=== PATIENT | female | born 1985 | race Caucasian/White ===

== ENCOUNTER → 2016-03-05 | Outpatient (CLI) | payer MEDICAID, MEDICARE ==
[~2016-03-05] MED LIST: ALBU8.5H2 INH; ASPI-587 PO; CHOL200041 PO; CIPR500T78 PO; CYAN50TA PO; FAMO-119 PO; FLUO10CA19 PO; HYDR-3454 PO; HYOS0.1283 SL; MECL-105 PO; MECL25TA56 PO; MELO-195 PO; METF500T8 PO; METR500T PO; MTF500T PO; MULT-974 PO; NITR-65 PO; OMEP40CA36 PO; ONDA8TAB13 PO; ONDAN4ODT PO; PANT40TA2 PO; PARO10TA2; PARO10TA21; PARO10TA3; PHEN-452 PO; PHEN37.53 PO; PNT40TEC PO; POTA10CA43 PO; PROM25TA14 PO; PRX20T PO; SCOP1PAT TD; SUCR1ORA5 PO; SULF1TAB35 PO; SUMA25TA4 PO; TOPI25TA10; TRAM-21 PO; TRAM50TA2 PO; [UNRECOGNIZED DRUG - OTHER]
--- OUTSIDE RECORDS SUMMARY | 2016-03-05 08:11 | XMS REPORT | Continuity of Care Document ---
Author Author [facility] Organization [facility] Address Unknown Phone Unavailable Care Team Providers Care Security Patrol Driver Name Role Phone KAMRYN MORE DO PCP Insurance Providers Payer Name Policy Number Subscriber Name Relationship [employer] [id number] Yaw Bunch 16 Self / Same As Patient [employer] [id number] Yaw Bunch Self / Same As Patient Advance Directives Directive Response Recorded Date/Time Advance Directives No 07/28/14 11:12pm Health Care Power of Programming Specialist No 07/28/14 11:12pm Organ Donor No 07/28/14 11:12pm Resuscitation Status Full Code 07/28/14 11:12pm Problems Medical Problems Problem Onset Date Status Colitis Unknown Active UTI (urinary tract infection) Unknown Active Cellulitis Unknown Active Infected sebaceous cyst Unknown Active Medications Medication Dose Route Sig Days/Qty Instructions Order Date Discontinued Date Status Paroxetine Hcl 04/27/09 06/15/13 Discontinued Ondansetron HCl 4 Mg PO EVERY 4HRS 5 Qty FOR NAUSEA AND VOMITING 06/15/13 Discontinued Scopolamine HCl 1 Ea TD Q3D 3 Qty 04/27/09 06/15/13 Discontinued Meclizine HCl 1 Each PO QID PRN 20 Qty FOR DIZZINESS 04/27/09 06/15/13 Discontinued Phentermine Hcl 30 Mg PO DAILY 04/30/12 09/13/13 Discontinued Metformin HCl (Glucophage) 1 Each PO TWICE A DAY WITH MEALS 04/30/12 09/13/13 Discontinued Paroxetine HCl 20 Mg PO DAILY 04/30/12 09/19/13 Discontinued Meclizine Hcl 25 Mg PO EVERY 6 HOURS 20 Qty 04/30/12 06/15/13 Discontinued Tramadol Hcl 50 Mg PO TWICE A DAY PRN PAIN 06/15/13 09/13/13 Discontinued Meloxicam (Mobic) 15 Mg PO DAILY 06/15/13 06/22/13 Discontinued [depo-preva] 06/15/13 07/28/14 Discontinued Cholecalciferol (Vitamin D3) 2,000 Unit PO DAILY 06/15/13 07/28/14 Discontinued Multivitamin 1 Each PO DAILY 06/15/13 07/28/14 Discontinued Aspirin 81 Mg PO DAILY 06/15/13 06/22/13 Discontinued Ciprofloxacin HCl 500 Mg PO TWICE A DAY 20 Qty 08/27/13 09/13/13 Discontinued Metronidazole 1 Each PO THREE TIMES A DAY 30 Qty 08/27/13 09/17/13 Discontinued Pantoprazole Sodium 1 Tab PO DAILY 30 Qty 08/27/13 09/17/13 Discontinued Fluoxetine HCl (Prozac) 10 Mg PO DAILY 30 Qty 09/13/13 Active Albuterol 1 Puff INH NEEDED PRN AIR HUNGER 9 Qty 09/13/13 07/28/14 Discontinued Metformin HCl (Glucophage Xr) 500 Mg PO DAILY 30 Qty 09/13/13 Active Potassium Chloride 10 Meq PO DAILY 30 Qty 09/13/13 Active Meloxicam (Mobic) 15 Mg PO DAILY 30 Qty 09/13/13 Active Cyanocobalamin 50 Mcg PO DAILY 09/13/13 07/28/14 Discontinued Hydrocodone Bit/Acetaminophen 1-2 Tab PO EVERY 4-6HRS PRN PAIN 30 Qty 09/19/13 07/28/14 Discontinued Paroxetine Hcl 30 Qty 07/28/14 Active Trimethoprim/Sulfamethoxazole 1 Tab PO TWICE A DAY 20 Qty FOR INFECTION 07/28/14 Active Tramadol Hcl 50 Mg PO EVERY 4HRS 20 Qty 07/28/14 Active Social History Social History Problem Response Recorded Date/Time Alcohol Use Denies Use 07/28/2014 11:12pm Recreational Drug Use No 07/28/2014 11:12pm Recent Foreign Travel No 07/28/2014 11:12pm Recent Infectious Disease Exposure No 07/28/2014 11:12pm Hospitalization with Isolation Denies 07/28/2014 11:12pm Sexually Transmitted Disease No 07/28/2014 11:12pm Smoking Status Never a Smoker 07/28/2014 11:12pm Query Response Start Date Stop Date Smoking Status Never a Smoker Hospital Discharge Instructions No hospital discharge instructions. Plan of Care No plan of care. Functional Status No functional status results. Allergies, Adverse Reactions, Alerts Allergen Type Severity Reaction Status Last Updated No Known Drug Allergies Active 04/30/12 Immunizations No immunization records. Vital Signs Acute Vital Signs Vital Response Date/Time Temperature (Fahrenheit) 99.4 degrees F (97.6 - 99.5) Temperature (Calculated Celsius) 37.73017 degrees C (36.4 - 37.5) Pulse Rate (adult) 80 bpm (60 - 90) Respiratory Rate 18 bpm (12 - 24) O2 Sat by Pulse Oximetry 96 % (88 - 100) Blood Pressure 125/69 mm Hg Pain Pain Intensity 10 Height (Feet) 5 feet Height (Inches) 9 inches Height (Calculated Centimeters) 175.143970 cm Weight (Pounds) 215 pounds Weight (Calculated Kilograms) 97.466205 kilograms Calculated BMI 31.75 Results No known relevant diagnostic tests, laboratory data and/or discharge summary. Procedures No known history of procedures. Encounters Encounter Location Date/Time Departed Emergency Room [facility] 07/28/14 10:15pm Recent Diagnosis
--- NOTE | 2016-03-05 09:03 | Diagnostic Imaging Report ---
PROCEDURE: MR imaging of the brain without contrast. TECHNIQUE: Multiplanar, multisequence MR imaging of the brain was performed without contrast. INDICATION: Migraine headaches. FINDINGS: There is no mass, shift of the midline or hemorrhage to suggest an acute intracranial abnormality. Furthermore, there is no abnormal signal arising from the brain on the diffusion series to suggest an area of acute ischemia. The ventricles are not abnormally dilated and similar in size to the previous MRI brain exam of 12/26/2006. In the interval since the previous study however, a fairly well-circumscribed 6.4 mm area of increased signal has developed adjacent to the left frontal horn on the FLAIR series. This finding is nonspecific and may be secondary to encephalomalacia from microvascular ischemia. It would be unlikely that this is related to demyelinating disease. There is no other abnormal signal in the periventricular white matter on the FLAIR series. The sella is not enlarged and the expected carotid flow voids are evident bilaterally. There are two contiguous retention cysts in the floor of the left maxillary antrum. These have a conglomerate size of 1.0 x 2.2 cm. There may also be minimal mucosal thickening of each maxillary antrum and of the ethmoid sinuses. The sphenoid and frontal sinuses are generally clear. The orbits are symmetrical and within normal limits. The seventh and eighth nerve complexes are unremarkable. The cerebellar tonsils are low-lying but within normal limits. The tonsils seem similar in position to the prior exam. IMPRESSION: 1. There is no evidence for an acute intracranial abnormality. There is no sign of a mass lesion either. 2. The small area of increased signal in the periventricular white matter near the left frontal horn seen on FLAIR series is nonspecific. This may be secondary to a small focus of encephalomalacia perhaps related to microvascular ischemia. It would be unlikely that this is related to demyelinating disease. 3. The cerebellar tonsils are low-lying but within normal limits and stable when compared to the prior study. Dictated by: Dictated on workstation # [id number]
== END ==
LOC: RAD 08:07
PROVIDERS: ATTEND Internal Medicine
DX: R51 Headache (principal)
CPT/HCPCS: 70551

== ENCOUNTER 2016-05-04 17:01 | Emergency (ER) | payer MEDICAID ==
[~2016-05-04] VITALS: Ht 170.2 cm; Wt 86.2 kg
[~2016-05-04 17:01] MED LIST changes: -FAMO-119 PO
[2016-05-04] MEDS ORDERED: NS IV 1000 ML 1,000 ML IV ONE (17:53)
[2016-05-04] MEDS ORDERED: FAMOTIDINE 20MG/2ML IV (PEPCID) IV STA (17:53)
[2016-05-04] MEDS ORDERED: LIDOCAINE 2% VISCOUS 15 ML UDC PO ONE (18:00)
[2016-05-04] MEDS ORDERED: ANTACID SUSP 30 ML UDC (MYLANTA) PO ONE (18:00)
[2016-05-04 18:13] LABS: BILIRUBIN,URINE NEGATIVE (NEGATIVE); KETONES,URINE NEGATIVE (NEGATIVE); LEUKOCYTE ESTERASE ,URINE 1+ (NEGATIVE); NITRITE,URINE NEGATIVE (NEGATIVE); PH,URINE 5 (5-9); PROTEIN,URINE 1+ (NEGATIVE); UROBILINOGEN,URINE NORMAL (NORMAL)
[2016-05-04 18:56] LABS: BASOPHILS % (AUTO) 0 % (0-10); EOSINOPHILS # (AUTO) 0.1 10^3/uL (0.0-0.3); EOSINOPHILS % (AUTO) 1 % (0-10); LYMPHOCYTES # (AUTO) 3.5 X 10^3 (1.0-4.0); LYMPHOCYTES % (AUTO) 39 % (12-44); MEAN CORPUSCULAR HEMOGLOBIN 31 PG (25-34); MEAN CORPUSCULAR HGB CONC 35 G/DL (32-36); MEAN CORPUSCULAR VOLUME 89 FL (80-99); MEAN PLATELET VOLUME 10.6 FL (7.4-10.4); MONOCYTES # (AUTO) 0.7 X 10^3 (0.0-1.0); MONOCYTES % (AUTO) 8 % (0-12); NEUTROPHILS # (AUTO) 4.8 X 10^3 (1.8-7.8); NEUTROPHILS % (AUTO) 53 % (42-75); PLATELET COUNT 250 10^3/uL (130-400); RED BLOOD COUNT 4.51 10^6/uL (4.35-5.85); RED CELL DISTRIBUTION WIDTH 12.3 % (10.0-14.5); WHITE BLOOD COUNT 9.1 10^3/uL (4.3-11.0)
--- NOTE | 2016-05-04 19:00 | ED Abdominal Pain ---
General Chief Complaint: Abdominal/GI Problems Stated Complaint: STOMACH PAIN Nursing Triage Note: c/o abd pain. Denies vomiting or diarrhea Sepsis Screen: No Definite Risk Source of Information: Patient Exam Limitations: No Limitations History of Present Illness Time Seen By Provider: 18:59 Initial Comments 31-year-old female patient presents to the emergency department with complaints of epigastric pain. Does complain of nausea and heartburn. Denies vomiting or diarrhea. Patient reports history of a hiatal hernia. Timing/Duration: 1 Week Severity/Quality: Aching, Burning Location: Epigastric Radiation: No Radiation Activities at Onset: None Modifying Factors: Worsens With Eating, Worsens With Lying down Allergies and Home Medications Allergies Coded Allergies: No Known Drug Allergies (Unverified , 04/30/12) Home Medications Famotidine 20 Mg Tablet, 20 MG PO BID, #20 Ref 0 Prescribed by: HOME BEATTY on 05/04/162026 Fluoxetine Hcl 10 Mg Capsule, 10 MG PO DAILY, #30 (Reported) Hyoscyamine Sulfate 0.125 Mg Tab.subl, 1-2 TAB SL Q4H, #10 Prescribed by: IBETH ZIMMERMAN on 12/06/152008 Meloxicam 15 Mg Tablet, 15 MG PO DAILY, #30 (Reported) Metformin Hcl 500 Mg Tab.sr.24h, 500 MG PO DAILY, #30 (Reported) Nitrofurantoin Monohyd/M-Cryst 100 Mg Capsule, 100 MG PO BID, #20 Prescribed by: IBETH ZIMMERMAN on 12/06/152010 Omeprazole 40 Mg Capsule.dr, 40 MG PO DAILY, #30 Ref 0 Prescribed by: HOME BEATTY on 05/04/162026 Pantoprazole Sodium 40 Mg Tablet.dr, 40 MG PO DAILY, #15 Prescribed by: IBETH ZIMMERMAN on 12/06/152008 Paroxetine HCl 10 Mg Tablet, #30 (Reported) Paroxetine Hcl 10 Mg Tablet, #30 (Reported) Phentermine HCl 37.5 Mg Tablet, 37.5 MG PO DAILY, (Reported) Potassium Chloride 10 Meq Capsule.sa, 10 MEQ PO DAILY, #30 (Reported) Promethazine HCl 25 Mg Tablet, 25 MG PO Q6H PRN for NAUSEA/VOMITING, #14 Ref 0 Prescribed by: SWATHI CORCORAN on 01/17/16 1614 Sumatriptan Succinate 25 Mg Tablet, 25 MG PO PRN PRN for MIGRAINE, #3 Ref 0 Take 2 tablets first sign of a migraine headache. If still having a headache and 2 hours you may take the third tablet Prescribed by: SWATHI CORCORAN on 01/17/16 1614 Topiramate 25 Mg Tablet, #30 (Reported) Tramadol Hcl 50 Mg Tablet, 50 MG PO Q4H, #20 Prescribed by: IBETH ZIMMERMAN on 07/28/14 4767 Review of Systems Constitutional: No chills, No dizziness, No fever, No malaise Respiratory: Denies Cough, Denies Shortness of Air Cardiovascular: Denies Chest Pain, Denies Lightheadedness, Denies Palpitations Gastrointestinal: See HPI, Denies Abdomen Distended, Abdominal Pain, Denies Blood Streaked Stools, Denies Constipated, Denies Diarrhea, Denies Difficulty Swallowing, Nausea, Poor Appetite, Denies Poor Fluid Intake, Denies Rectal Bleeding, Denies Vomiting Genitourinary: Denies Burning, Denies Discharge, Denies Frequency, Denies Flank Pain, Denies Hematuria, Denies Pain Musculoskeletal: no symptoms reported Skin: no symptoms reported Psychiatric/Neurological: No Symptoms Reported All Other Systems Reviewed Negative Unless Noted: Yes (Negative excepted noted.) Past Uigtwbj-Tdnhwp-Ctdqwo Hx Patient Social History Recent Foreign Travel: No Contact w/Someone Who Travel: No Recent Infectious Disease Expo: No Recent Hopitalizations: No Immunizations Up To Date Tetanus Booster (TDap): Unknown Seasonal Allergies Seasonal Allergies: No Surgeries HX Surgeries: Yes (CYST REMOVED, DENTAL; FLEX SIGMOIDOSCOPY) Surgeries: Gallbladder, Tonsillectomy Respiratory Hx Respiratory Disorders: No Cardiovascular Hx Cardiac Disorders: No Neurological Hx Neurological Disorders: No Reproductive System Hx Reproductive Disorders: No Sexually Transmitted Disease: No Genitourinary Hx Genitourinary Disorders: No Gastrointestinal Hx Gastrointestinal Disorders: Yes (S/P HUMZA) Gastrointestinal Disorders: Gall Bladder Disease Musculoskeletal Hx Musculoskeletal Disorders: No Endocrine Hx 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, Non-Insulin dep HEENT HX ENT Disorders: No Cancer Hx Cancer: No Psychosocial Hx Psychiatric Problems: Yes Behavioral Health Disorders: Depression Integumentary HX Skin/Integumentary Disorder: No Blood Transfusions Hx Blood Disorders: No Reviewed Nursing Assessment Reviewed/Agree w Nursing PMH: Yes Family Medical History Significant Family History: No Pertinent Family Hx Physical Exam Vital Signs Capillary Refill : Less Than 3 Seconds General Appearance: WD/WN, no apparent distress HEENT: PERRL/EOMI, pharynx normal Neck: supple, normal inspection Respiratory: lungs clear, normal breath sounds, no respiratory distress Cardiovascular: normal peripheral pulses, regular rate, rhythm, no murmur Gastrointestinal: normal bowel sounds, soft, no organomegaly, No distended, guarding (epigastric), No rebound, tenderness (epigastric tenderness), No hernia , No mass Extremities: normal capillary refill Back: normal inspection, no CVA tenderness Neurologic/Psychiatric: alert, normal mood/affect, oriented x 3 Skin: normal color, warm/dry Progress/Results/Core Measures Results/Orders Lab Results Laboratory Tests Test 05/04/16 18:00 05/04/16 18:50 Range/Units Urine Color YELLOW Urine Clarity CLEAR Urine pH 5 5-9 Urine Specific [place] 1.030 H 1.016-1.022 Urine Protein 1+ H NEGATIVE Urine Glucose (UA) NEGATIVE NEGATIVE Urine Ketones NEGATIVE NEGATIVE Urine Nitrite NEGATIVE NEGATIVE Urine Bilirubin NEGATIVE NEGATIVE Urine Urobilinogen NORMAL NORMAL MG/DL Urine Leukocyte Esterase 1+ H NEGATIVE Urine RBC (Auto) NEGATIVE NEGATIVE Urine RBC RARE /HPF Urine WBC 2-5 /HPF Urine Squamous Epithelial Cells 5-10 /HPF Urine Crystals NONE /LPF Urine Bacteria MODERATE H /HPF Urine Casts NONE /LPF Urine Mucus MODERATE H /LPF Urine Culture Indicated NO White Blood Count 9.1 4.3-11.0 10^3/uL Red Blood Count 4.51 4.35-5.85 10^6/uL Hemoglobin 14.0 11.5-16.0 G/DL Hematocrit 40 35-52 % Mean Corpuscular Volume 89 80-99 FL Mean Corpuscular Hemoglobin 31 25-34 PG Mean Corpuscular Hemoglobin Concent 35 32-36 G/DL Red Cell Distribution Width 12.3 10.0-14.5 % Platelet Count 250 130-400 10^3/uL Mean Platelet Volume 10.6 H 7.4-10.4 FL Neutrophils (%) (Auto) 53 42-75 % Lymphocytes (%) (Auto) 39 12-44 % Monocytes (%) (Auto) 8 0-12 % Eosinophils (%) (Auto) 1 0-10 % Basophils (%) (Auto) 0 0-10 % Neutrophils # (Auto) 4.8 1.8-7.8 X 10^3 Lymphocytes # (Auto) 3.5 1.0-4.0 X 10^3 Monocytes # (Auto) 0.7 0.0-1.0 X 10^3 Eosinophils # (Auto) 0.1 0.0-0.3 10^3/uL Basophils # (Auto) 0.0 0.0-0.1 10^3/uL Sodium Level 141 135-145 MMOL/L Potassium Level 3.9 3.6-5.0 MMOL/L Chloride Level 112 H 98-107 MMOL/L Carbon Dioxide Level 19 L 21-32 MMOL/L Anion Gap 10 5-14 MMOL/L Blood Urea Nitrogen 16 7-18 MG/DL Creatinine 0.77 0.60-1.30 MG/DL Estimat Glomerular Filtration Rate > 60 BUN/Creatinine Ratio 21 Glucose Level 69 L 70-105 MG/DL Calcium Level 8.6 8.5-10.1 MG/DL Total Bilirubin 1.2 H 0.1-1.0 MG/DL Aspartate Amino Transf (AST/SGOT) 16 5-34 U/L Alanine Aminotransferase (ALT/SGPT) 13 0-55 U/L Alkaline Phosphatase 48 40-136 U/L Total Protein 6.3 L 6.4-8.2 G/DL Albumin 3.8 3.2-4.5 G/DL Lipase 28 8-78 U/L My Orders Orders - HOME BEATTY Cbc With Automated Diff (05/04/16 17:53) Comprehensive Metabolic Panel (05/04/16 17:53) Lipase (05/04/16 17:53) Ua Culture If Indicated (05/04/16 17:53) Saline Lock/Iv-Start (05/04/16 17:53) Urine Bedside (05/04/16 17:53) Lidocaine 2% Viscous 15 Ml (Xylocaine Vi (05/04/16 18:00) Antacid Suspension (Mylanta Suspension (05/04/16 18:00) Famotidine Injection (Pepcid Injection) (05/04/16 17:53) Ns Iv 1000 Ml (Sodium Chloride 0.9%) (05/04/16 17:53) Iv Push Bundle Helper Ed (05/04/16 ) Medications Given in ED Vital Signs/I&O Blood Pressure Mean: 84 Departure Communication Progress Notes Laboratory findings discussed with the patient. Patient reports was complete resolution of symptoms with medications given. Plan for discharge to home. Return precautions were discussed with the patient as described in the discharge instructions of this report. Patient voices understanding and agrees with the treatment plan. Impression Impression: Primary Impression: Gastritis Qualified Codes: K29.00 - Acute gastritis without bleeding Additional Impression: History of hiatal hernia Disposition: HOME, SELF-CARE Condition: Improved Departure-Patient Inst. Decision time for Depature: 20:25 Referrals: KAMRYN MORE DO (PCP/Family) Primary Care Physician Patient Instructions: Gastritis (DC), Viral Gastroenteritis, Adult (DC) Add. Discharge Instructions: All discharge instructions reviewed with patient and/or family. Voiced understanding. Medications as instructed. Push fluids. Avoid aspirin, ibuprofen, Aleve, spicy foods, fatty foods, carbonated beverages, caffeinated beverages. Do not eat within 2 hours of lying down. Follow-up with your family practitioner for recheck and for possible need of upper endoscopy. Return to the emergency department for worsened pain, fever, vomiting, vomiting blood, rectal bleeding, black stools, abdominal swelling, or any other concerns. Scripts Famotidine (Pepcid) 20 Mg Tablet 20 MG PO BID, #20 TAB 0 Refills Prov: HOME BEATTY 05/04/16 Omeprazole (Omeprazole) 40 Mg Capsule.dr 40 MG PO DAILY, #30 CAP 0 Refills Prov: HOME BEATTY 05/04/16 Work/School Note: Work Release Form Date Seen in the Emergency Department: May 04, 2016 Return to Work: May 06, 2016 Restrictions: No Restrictions HOME BEATTY May 04, 2016 19:00
[2016-05-04 19:14] LABS: ALANINE AMINOTRANSFERASE 13 U/L (0-55); ALBUMIN 3.8 G/DL (3.2-4.5); ANION GAP 10 MMOL/L (5-14); ASPARTATE AMINO TRANSFERASE 16 U/L (5-34); BILIRUBIN,TOTAL 1.2 MG/DL (0.1-1.0); BLOOD UREA NITROGEN 16 MG/DL (7-18); BUN/CREATININE RATIO 21; CALCIUM 8.6 MG/DL (8.5-10.1); CARBON DIOXIDE 19 MMOL/L (21-32); CHLORIDE 112 MMOL/L (98-107); CREATININE SERUM 0.77 MG/DL (0.60-1.30); GFR ESTIMATED > 60; GLUCOSE 69 MG/DL (70-105); LIPASE 28 U/L (8-78); POTASSIUM 3.9 MMOL/L (3.6-5.0); SODIUM 141 MMOL/L (135-145); TOTAL PROTEIN 6.3 G/DL (6.4-8.2)
[2016-05-04] MEDS ORDERED: OMEP40CA36 PO (20:27)
[2016-05-04] MEDS ORDERED: FAMO-119 PO (20:27)
[2016-05-04 20:43] VITALS: BP 116/71
--- OUTSIDE RECORDS SUMMARY | 2016-05-23 05:01 | XMS REPORT ---
Author Author MICHAEL ELENA Organization [facility] Address [address] [place] [address] Care Team Providers Care Flight Engineer Helicopter Name Role Phone MARITZA ELENAE Unavailable PROBLEMS Type Condition ICD9-CM Code [id number] Code Onset Dates Condition Status SNOMED Code Assessment control counseling Z30.9 02 Oct, 2015 Active 87041639 Assessment Encounter for Depo-Provera contraception Z30.42 02 Oct, 2015 Active 983590260 Problem Wellness examination Z00.00 Active 514095040 Problem Insulin resistance E88.81 Active 875761334 Problem Surveillance of other previously prescribed contraceptive method V25.49 Active 636277493 Assessment Wellness examination Z00.00 Oct, Active 743673420 Problem Chronic tension-type headache, intractable G44.221 Active 550889574 Problem Major depressive disorder with single episode, remission status unspecified F32.9 Active 09355552 ALLERGIES Substance Reaction Event Type Date Status N.K.D.A. Unknown Non Drug Allergy Oct, Unknown SOCIAL HISTORY No smoking Hx information available PLAN OF CARE VITAL SIGNS Height 70 in 2015-10-10 Weight 240.3 lbs 2015-10-10 Heart Rate 76 bpm 2015-10-10 Respiratory Rate 20 2015-10-10 BMI 34.48 kg/m2 2015-10-10 Blood pressure systolic 124 mmHg 2015-10-10 Blood pressure diastolic 77 mmHg 2015-10-10 MEDICATIONS Medication Instructions Dosage Frequency Start Date End Date Duration Status Topamax 50 MG Orally Once a day 1 tablet 24h Active Paxil 10 mg 1 tablet by Oral route 1 time per day for anxiety Nov, Active Prozac 10 mg 1 capsule by Oral route 1 time per day Sep, Active Depo-Provera 150 MG/ML inject 150 mg by intramuscular route every 3 months Nov, Active Metformin HCl 500 MG Orally Once a day 1 tablet with meals 24h Active RESULTS Name Result Date Reference Range CULTURE, GENITAL 2015-10-10 Genital Culture, Routine Final report Result 1 GC/CHLAM PROBE (STATE) 2015-10-10 CHLAMYDIA GC TEST, URINE (IN HOUSE) 2015-10-10 RESULTS Negative Lot # [id number] Control + Exp date TRICHOMONAS (IN HOUSE) 2015-10-10 TRICHOMONAS Negative Control + Lot # [id number] Exp date 2016-12 BACTERIAL VAGINOSIS (IN HOUSE) 2015-10-10 RESULTS Negative Control + Lot # [id number] Exp date 2016-07 PROCEDURES Procedure Date Ordered Related Diagnosis Body Site No Charge Oct 10, 2015 RAHMAN VAG, DNA, DIR PROBE Oct 10, 2015 THER/PROPH/DIAG INJ, SC/IM Oct 10, 2015 Office Visit, Est Pt., Level 4 Oct 10, 2015 LAB NOT BILLED BY [facility] Oct 10, 2015 DEPO PROVERA (150 MG/ML) Oct 10, 2015 URINE TEST Oct 10, 2015 IMMUNIZATIONS Vaccine Route Administration Date Status DEPO PROVERA (150 MG/ML) IM Intramuscular Oct 10, 2015 Administered
--- OUTSIDE RECORDS SUMMARY | 2016-05-23 05:01 | XMS REPORT ---
Author Author MICHAEL ELENA Organization [facility] Address [address] [place] [address] Care Team Providers Care Brick And Blocker Aid Labor Name Role Phone MICHAEL ELENA Unavailable PROBLEMS Type Condition ICD9-CM Code IIO19-PB Code Onset Dates Condition Status SNOMED Code Problem Wellness examination Z00.00 Active 851493355 Problem Insulin resistance E88.81 Active 897976979 Problem Surveillance of other previously prescribed contraceptive method V25.49 Active 991719159 Assessment Encounter for Depo-Provera contraception Z30.42 Jan, Active 652597484 Problem Chronic tension-type headache, intractable G44.221 Active 458804229 Problem Major depressive disorder with single episode, remission status unspecified F32.9 Active 71158643 ALLERGIES Unknown Allergies SOCIAL HISTORY No smoking Hx information available PLAN OF CARE VITAL SIGNS MEDICATIONS Unknown Medications RESULTS No Results PROCEDURES Procedure Date Ordered Related Diagnosis Body Site URINE TEST Jan 12, 2016 DEPO PROVERA (150 MG/ML) Jan 12, 2016 THER/PROPH/DIAG INJ, SC/IM Jan 12, 2016 IMMUNIZATIONS Vaccine Route Administration Date Status DEPO PROVERA (150 MG/ML) IM Intramuscular Jan 12, 2016 Administered
--- OUTSIDE RECORDS SUMMARY | 2016-05-23 05:02 | XMS REPORT ---
Author Author SARA RAHMAN Organization [employer] Address Unknown Phone Unavailable Care Team Providers Care Clip On Sunglasses Inspector Name Role Phone SARA RAHMAN CP Unavailable Allergies No Known Allergies Problems Problem Type Condition Code Onset Dates Condition Status Assessment Encounter for Depo-Provera contraception Z30.42 Active Problem Surveillance of other previously prescribed contraceptive method V25.49 Active Medications No Known Medications Procedures Procedure Coding System Code Date DEPO PROVERA (150 MG/ML) CPT-4 J1050 Dec 31, 2014 THER/PROPH/DIAG INJ, SC/IM CPT-4 97698 Dec 31, 2014 URINE TEST CPT-4 81277 Dec 31, 2014 Results Name Result Date Reference Range Unit Abnormality Flag TEST, URINE (IN HOUSE) ----RESULTS Negative 20150101 ----Lot # [id number] ----Control + 20150101 ----Exp date 20150101 Summary Purpose [employer] Submission
--- OUTSIDE RECORDS SUMMARY | 2016-05-23 05:02 | XMS REPORT ---
Author KEE Bah Organization [employer] Address Unknown Phone Unavailable Care Team Providers Care Business Process Specialist Name Role Phone KEE HESS CP Unavailable Allergies No Known Allergies Problems Problem Type Condition Code Onset Dates Condition Status Problem Surveillance of other previously prescribed contraceptive method V25.49 Active Medications No Known Medications Results No Known Results Summary Purpose [employer] Submission
--- OUTSIDE RECORDS SUMMARY | 2016-05-23 05:03 | XMS REPORT ---
Author Author LALO ZHANG Organization [employer] Address Unknown Phone Unavailable Care Team Providers Care Bakery Supervisor Name Role Phone LALO ZHANG CP Unavailable Allergies, Adverse Reactions, Alerts Substance Reaction Event Type N.K.D.A. Info Not Available Non Drug Allergy Problems Problem Type Condition ICD-9 Code Onset Dates Condition Status Assessment Routine gynecological examination V72.31 Active Assessment Pap test, as part of routine gynecological examination V76.2 Active Problem Surveillance of other previously prescribed contraceptive method V25.49 Active Assessment Breast cancer screening V76.10 Active Assessment Depo-Provera contraceptive status V25.49 Active Medications Medication Code System Code Instructions Start Date End Date Status Dosage Topamax [facility] [address]-14 50 MG Orally Once a day 1 tablet Prozac [facility] [address]-59 10 mg 1 CAP orally once a day Oct 02, 2013 1 capsule by Oral route 1 time per day Paxil [facility] [address]-19 10 mg Nov 14, 2013 1 tablet by Oral route 1 time per day for anxiety Metformin HCl [facility] [address]-52 500 MG Orally Once a day 1 tablet with meals Depo-Provera [facility] [address]-38 150 MG/ML Nov 28, 2012 inject 150 mg by intramuscular route every 3 months Procedures Procedure Coding System Code Date URINE TEST CPT-4 86084 Oct 01, 2014 Preventive Care Est Pt. Age 18-39 CPT-4 38668 Oct 01, 2014 SPECIMEN HANDLING CPT-4 13331 Oct 01, 2014 THER/PROPH/DIAG INJ, SC/IM CPT-4 60948 Oct 01, 2014 DEPO PROVERA (150 MG/ML) CPT-4 J1050 Oct 01, 2014 Vital Signs Date/Time: Oct 01, 2014 Temperature 98.8 F Weight 216.7 lbs Height 70 in BMI 31.09 Index Blood Pressure Diastolic 70 mmHg Blood Pressure Systolic 112 mmHg Cardiac Monitoring Heart Rate 64 bpm Results Name Result Date Reference Range Unit Abnormality Flag TEST, URINE (IN HOUSE) Summary Purpose [employer] Submission
--- OUTSIDE RECORDS SUMMARY | 2016-05-23 05:04 | XMS REPORT | Continuity of Care Document ---
Author Author [facility] Address Unknown Phone Unavailable Allergies Active Description Code Type Severity Reaction Onset Reported/Identified Relationship to Patient Clinical Status Yes No Known Drug Allergies [id number] Drug Allergy Unknown N/ A 04/30/2012 Medications Problems Date Dx Coded Attending Type Code Diagnosis Diagnosed By 01/07/1104 DAVE PEDROZA DO, Ot M79.641 01/07/1104 DAVE PEDROZA DO, Ot Z47.89 09/14/2007 380.4 CERUMEN IMPACTION 09/14/2007 KEE HESS DO 380.4 CERUMEN IMPACTION 09/14/2007 380.4 CERUMEN IMPACTION 09/14/2007 JACE WRIGHT DO 380.4 CERUMEN IMPACTION 09/14/2007 JACE WRIGHT DO 380.4 CERUMEN IMPACTION 09/14/2007 WRIGHT JACE LR 380.4 CERUMEN IMPACTION 09/14/2007 WRIGHT JACE LR 380.4 CERUMEN IMPACTION 09/14/2007 DON NERI APRN 380.4 CERUMEN IMPACTION 09/14/2007 WRIGHT JACE LR 380.4 CERUMEN IMPACTION 09/14/2007 HONEY GONZALEZ MD 380.4 CERUMEN IMPACTION 09/14/2007 DON NERI APRN 380.4 CERUMEN IMPACTION 09/14/2007 JACE WRIGHT DO 380.4 CERUMEN IMPACTION 09/22/2007 300.00 AN ANXIETY UNSPEC 09/22/2007 311 DEPRESSIVE DISORDER NOT ELSEWHERE CLASSIFIED 09/22/2007 317 MILD MENTAL RETARDATION 09/22/2007 346.90 MIGRAINE UNSPECIFIED WITHOUT INTRACTABLE MIGRAINE 09/22/2007 KEE HESS DO 300.00 AN ANXIETY UNSPEC 09/22/2007 KEE HESS DO 311 DEPRESSIVE DISORDER NOT ELSEWHERE CLASSIFIED 09/22/2007 KEE HESS DO 317 MILD MENTAL RETARDATION 09/22/2007 KEE HESS DO 346.90 MIGRAINE UNSPECIFIED WITHOUT INTRACTABLE MIGRAINE 09/22/2007 300.00 AN ANXIETY UNSPEC 09/22/2007 311 DEPRESSIVE DISORDER NOT ELSEWHERE CLASSIFIED 09/22/2007 317 MILD MENTAL RETARDATION 09/22/2007 346.90 MIGRAINE UNSPECIFIED WITHOUT INTRACTABLE MIGRAINE 09/22/2007 WRIGHT DO, JACE K 300.00 AN ANXIETY UNSPEC 09/22/2007 WRIGHT DO, JACE K 311 DEPRESSIVE DISORDER NOT ELSEWHERE CLASSIFIED 09/22/2007 WRIGHT DO JACE K 317 MILD MENTAL RETARDATION 09/22/2007 WRIGHT DO, JACE K 346.90 MIGRAINE UNSPECIFIED WITHOUT INTRACTABLE MIGRAINE 09/22/2007 WRIGHT DO, JACE K 300.00 AN ANXIETY UNSPEC 09/22/2007 WRIGHT DO, JACE K 311 DEPRESSIVE DISORDER NOT ELSEWHERE CLASSIFIED 09/22/2007 WRIGHT DO, JACE K 317 MILD MENTAL RETARDATION 09/22/2007 WRIGHT DO, JACE K 346.90 MIGRAINE UNSPECIFIED WITHOUT INTRACTABLE MIGRAINE 09/22/2007 WRIGHT DO, JACE K 300.00 AN ANXIETY UNSPEC 09/22/2007 WRIGHT DO, JACE K 311 DEPRESSIVE DISORDER NOT ELSEWHERE CLASSIFIED 09/22/2007 WRIGHT DO JACE K 317 MILD MENTAL RETARDATION 09/22/2007 WRIGHT DO, JACE K 346.90 MIGRAINE UNSPECIFIED WITHOUT INTRACTABLE MIGRAINE 09/22/2007 WRIGHT DO, JACE K 300.00 AN ANXIETY UNSPEC 09/22/2007 WRIGHT DO, JACE K 311 DEPRESSIVE DISORDER NOT ELSEWHERE CLASSIFIED 09/22/2007 WRIGHT DO, JACE K 317 MILD MENTAL RETARDATION 09/22/2007 WRIGHT DO, JACE K 346.90 MIGRAINE UNSPECIFIED WITHOUT INTRACTABLE MIGRAINE 09/22/2007 DON NERI APRN 300.00 AN ANXIETY UNSPEC 09/22/2007 DON NERI APRN 311 DEPRESSIVE DISORDER NOT ELSEWHERE CLASSIFIED 09/22/2007 DON NERI APRN 317 MILD MENTAL RETARDATION 09/22/2007 DON NERI APRN 346.90 MIGRAINE UNSPECIFIED WITHOUT INTRACTABLE MIGRAINE 09/22/2007 WRIGHT DO JACE K 300.00 AN ANXIETY UNSPEC 09/22/2007 WRIGHT DO, JACE K 311 DEPRESSIVE DISORDER NOT ELSEWHERE CLASSIFIED 09/22/2007 WRIGHT DO, JACE K 317 MILD MENTAL RETARDATION 09/22/2007 WRIGHT DO JACE K 346.90 MIGRAINE UNSPECIFIED WITHOUT INTRACTABLE MIGRAINE 09/22/2007 HONEY GONZALEZ MD 300.00 AN ANXIETY UNSPEC 09/22/2007 HONEY GONZALEZ MD 311 DEPRESSIVE DISORDER NOT ELSEWHERE CLASSIFIED 09/22/2007 HONEY GONZALEZ MD 317 MILD MENTAL RETARDATION 09/22/2007 HONEY GONZALEZ MD 346.90 MIGRAINE UNSPECIFIED WITHOUT INTRACTABLE MIGRAINE 09/22/2007 DON NERI APRN 300.00 AN ANXIETY UNSPEC 09/22/2007 NERI METAL MACHINE OPERATOR, DON PETERSEN 311 DEPRESSIVE DISORDER NOT ELSEWHERE CLASSIFIED 09/22/2007 HALLE BARRAGAN, DON PETERSEN 317 MILD MENTAL RETARDATION 09/22/2007 NERI METAL MACHINE OPERATOR, DON PETERSEN 346.90 MIGRAINE UNSPECIFIED WITHOUT INTRACTABLE MIGRAINE 09/22/2007 WRIGHT DO, JACE K 300.00 AN ANXIETY UNSPEC 09/22/2007 WRIGHT DO, JACE K 311 DEPRESSIVE DISORDER NOT ELSEWHERE CLASSIFIED 09/22/2007 WRIGHT DO, JACE K 317 MILD MENTAL RETARDATION 09/22/2007 WRIGHT DO, JACE K 346.90 MIGRAINE UNSPECIFIED WITHOUT INTRACTABLE MIGRAINE 10/12/2007 706.2 SEBACEOUS CYST 10/12/2007 KEE HESS DO 706.2 SEBACEOUS CYST 10/12/2007 706.2 SEBACEOUS CYST 10/12/2007 WRIGHT DO, JACE K 706.2 SEBACEOUS CYST 10/12/2007 WRIGHT DO, JACE K 706.2 SEBACEOUS CYST 10/12/2007 WRIGHT DO, JACE K 706.2 SEBACEOUS CYST 10/12/2007 WRIGHT DO, JACE K 706.2 SEBACEOUS CYST 10/12/2007 DON NERI APRN 706.2 SEBACEOUS CYST 10/12/2007 WRIGHT DO, JACE K 706.2 SEBACEOUS CYST 10/12/2007 HONEY GONZALEZ MD 706.2 SEBACEOUS CYST 10/12/2007 DON NERI APRN 706.2 SEBACEOUS CYST 10/12/2007 WRIGHT DO, JACE K 706.2 SEBACEOUS CYST 02/06/2008 724.5 BACKACHE UNSPECIFIED 02/06/2008 KEE HESS DO 724.5 BACKACHE UNSPECIFIED 02/06/2008 724.5 BACKACHE UNSPECIFIED 02/06/2008 WRIGHT DO, JACE K 724.5 BACKACHE UNSPECIFIED 02/06/2008 WRIGHT DO, JACE K 724.5 BACKACHE UNSPECIFIED 02/06/2008 WRIGHT DO, JACE K 724.5 BACKACHE UNSPECIFIED 02/06/2008 WRIGHT DO, JACE K 724.5 BACKACHE UNSPECIFIED 02/06/2008 DON NERI APRN 724.5 BACKACHE UNSPECIFIED 02/06/2008 WRIGHT DO, JACE K 724.5 BACKACHE UNSPECIFIED 02/06/2008 HONEY GONZALEZ MD 724.5 BACKACHE UNSPECIFIED 02/06/2008 DON NERI APRN 724.5 BACKACHE UNSPECIFIED 02/06/2008 WRIGHT DO, JACE K 724.5 BACKACHE UNSPECIFIED 02/20/2008 455.6 HEMORRHOIDS NOS 02/20/2008 KEE HESS DO F 455.6 HEMORRHOIDS NOS 02/20/2008 455.6 HEMORRHOIDS NOS 02/20/2008 WRIGHT DO, JACE K 455.6 HEMORRHOIDS NOS 02/20/2008 WRIGHT DO, JACE K 455.6 HEMORRHOIDS NOS 02/20/2008 WRIGHT DO, JACE K 455.6 HEMORRHOIDS NOS 02/20/2008 WRIGHT DO, JACE K 455.6 HEMORRHOIDS NOS 02/20/2008 DON NERI APRN 455.6 HEMORRHOIDS NOS 02/20/2008 WRIGHT DO, JACE K 455.6 HEMORRHOIDS NOS 02/20/2008 HONEY GONZALEZ MD 455.6 HEMORRHOIDS NOS 02/20/2008 DON NERI APRN 455.6 HEMORRHOIDS NOS 02/20/2008 WRIGHT DO, JACE K 455.6 HEMORRHOIDS NOS 03/11/2008 278.02 Overweight 03/11/2008 493.90 REACTIVE AIRWAY DISEASE 03/11/2008 724.2 lower back pain 03/11/2008 KEE HESS DO F 278.02 Overweight 03/11/2008 KEE HESS DO F 493.90 REACTIVE AIRWAY DISEASE 03/11/2008 KEE HESS DO F 724.2 lower back pain 03/11/2008 278.02 Overweight 03/11/2008 493.90 REACTIVE AIRWAY DISEASE 03/11/2008 724.2 lower back pain 03/11/2008 WRIGHT DO, JACE K 278.02 Overweight 03/11/2008 WRIGHT DO, JACE K 493.90 REACTIVE AIRWAY DISEASE 03/11/2008 WRIGHT DO, JACE K 724.2 lower back pain 03/11/2008 WRIGHT DO, JACE K 278.02 Overweight 03/11/2008 WRIGHT DO, JACE K 493.90 REACTIVE AIRWAY DISEASE 03/11/2008 WRIGHT DO, JACE K 724.2 lower back pain 03/11/2008 WRIGHT DO, JACE K 278.02 Overweight 03/11/2008 WRIGHT DO, JACE K 493.90 REACTIVE AIRWAY DISEASE 03/11/2008 WRIGHT DO, JACE K 724.2 LOWER BACK PAIN 03/11/2008 WRIGHT DO, JACE K 278.02 Overweight 03/11/2008 WRIGHT DO, JACE K 493.90 REACTIVE AIRWAY DISEASE 03/11/2008 WRIGHT DO, JACE K 724.2 LOWER BACK PAIN 03/11/2008 DON NERI APRN 278.02 Overweight 03/11/2008 DON NERI APRN 493.90 REACTIVE AIRWAY DISEASE 03/11/2008 DON NERI APRN 724.2 LOWER BACK PAIN 03/11/2008 WRIGHT DO, JACE K 278.02 Overweight 03/11/2008 WRIGHT DO, JACE K 493.90 REACTIVE AIRWAY DISEASE 03/11/2008 WRIGHT DO, JACE K 724.2 LOWER BACK PAIN 03/11/2008 HONEY GONZALEZ MD 278.02 Overweight 03/11/2008 HONEY GONZALEZ MD 493.90 REACTIVE AIRWAY DISEASE 03/11/2008 HONEY GONZALEZ MD 724.2 LOWER BACK PAIN 03/11/2008 DON NERI APRN 278.02 Overweight 03/11/2008 DON NERI APRN 493.90 REACTIVE AIRWAY DISEASE 03/11/2008 DON NERI APRN 724.2 LOWER BACK PAIN 03/11/2008 WRIGHT DO, JACE K 278.02 Overweight 03/11/2008 WRIGHT DO, JACE K 493.90 REACTIVE AIRWAY DISEASE 03/11/2008 WRIGHT DO, JACE K 724.2 LOWER BACK PAIN 03/25/2008 783.1 ABNORMAL WEIGHT GAIN 03/25/2008 KEE HESS DO 783.1 ABNORMAL WEIGHT GAIN 03/25/2008 783.1 ABNORMAL WEIGHT GAIN 03/25/2008 WRIGHT DO JACE K 783.1 ABNORMAL WEIGHT GAIN 03/25/2008 WRIGHT DO JACE K 783.1 ABNORMAL WEIGHT GAIN 03/25/2008 WRIGHT DO JACE K 783.1 ABNORMAL WEIGHT GAIN 03/25/2008 WRIGHT DO, JACE K 783.1 ABNORMAL WEIGHT GAIN 03/25/2008 DON NERI APRN 783.1 ABNORMAL WEIGHT GAIN 03/25/2008 WRIGHT DO, JACE K 783.1 ABNORMAL WEIGHT GAIN 03/25/2008 HONEY GONZALEZ MD 783.1 ABNORMAL WEIGHT GAIN 03/25/2008 DON NERI APRN 783.1 ABNORMAL WEIGHT GAIN 03/25/2008 WRIGHT DO, JACE K 783.1 ABNORMAL WEIGHT GAIN 04/08/2008 780.4 DIZZINESS AND GIDDINESS 04/08/2008 KEE HESS DO 780.4 DIZZINESS AND GIDDINESS 04/08/2008 780.4 DIZZINESS AND GIDDINESS 04/08/2008 WRIGHT DO, JACE K 780.4 DIZZINESS AND GIDDINESS 04/08/2008 WRIGHT DO, JACE K 780.4 DIZZINESS AND GIDDINESS 04/08/2008 WRIGHT DO, JACE K 780.4 DIZZINESS AND GIDDINESS 04/08/2008 WRIGHT DO, JACE K 780.4 DIZZINESS AND GIDDINESS 04/08/2008 DON NERI APRN 780.4 DIZZINESS AND GIDDINESS 04/08/2008 WRIGHT DO, JACE K 780.4 DIZZINESS AND GIDDINESS 04/08/2008 HONEY GONZALEZ MD 780.4 DIZZINESS AND GIDDINESS 04/08/2008 DON NERI APRN 780.4 DIZZINESS AND GIDDINESS 04/08/2008 WRIGHT DO, JACE K 780.4 DIZZINESS AND GIDDINESS 07/09/2008 078.10 VIRAL WARTS UNSPECIFIED 07/09/2008 271.9 UNSPECIFIED DISORDER OF CARBOHYDRATE TRANSPORT AND METABOLISM 07/09/2008 KEE HESS DO F 078.10 VIRAL WARTS UNSPECIFIED 07/09/2008 KEE HESS DO 271.9 UNSPECIFIED DISORDER OF CARBOHYDRATE TRANSPORT AND METABOLISM 07/09/2008 078.10 VIRAL WARTS UNSPECIFIED 07/09/2008 271.9 UNSPECIFIED DISORDER OF CARBOHYDRATE TRANSPORT AND METABOLISM 07/09/2008 CURLY WRIGHT DOA K 078.10 VIRAL WARTS UNSPECIFIED 07/09/2008 CURLY WRIGHT DOA K 271.9 UNSPECIFIED DISORDER OF CARBOHYDRATE TRANSPORT AND METABOLISM 07/09/2008 WRIGHT DO JACE K 078.10 VIRAL WARTS UNSPECIFIED 07/09/2008 WRIGHT DO, JACE K 271.9 UNSPECIFIED DISORDER OF CARBOHYDRATE TRANSPORT AND METABOLISM 07/09/2008 WRIGHT DO, JACE K 078.10 VIRAL WARTS UNSPECIFIED 07/09/2008 WRIGHT DO, JACE K 271.9 UNSPECIFIED DISORDER OF CARBOHYDRATE TRANSPORT AND METABOLISM 07/09/2008 WRIGHT DO JACE K 078.10 VIRAL WARTS UNSPECIFIED 07/09/2008 WRIGHT DO JACE K 271.9 UNSPECIFIED DISORDER OF CARBOHYDRATE TRANSPORT AND METABOLISM 07/09/2008 DON NERI APRN 078.10 VIRAL WARTS UNSPECIFIED 07/09/2008 DON NERI APRN 271.9 UNSPECIFIED DISORDER OF CARBOHYDRATE TRANSPORT AND METABOLISM 07/09/2008 WRIGHT DO JACE K 078.10 VIRAL WARTS UNSPECIFIED 07/09/2008 WRIGHT DO JACE K 271.9 UNSPECIFIED DISORDER OF CARBOHYDRATE TRANSPORT AND METABOLISM 07/09/2008 HONEY GONZALEZ MD 078.10 VIRAL WARTS UNSPECIFIED 07/09/2008 HONEY GONZALEZ MD 271.9 UNSPECIFIED DISORDER OF CARBOHYDRATE TRANSPORT AND METABOLISM 07/09/2008 DON NERI APRN 078.10 VIRAL WARTS UNSPECIFIED 07/09/2008 DON NERI APRN 271.9 UNSPECIFIED DISORDER OF CARBOHYDRATE TRANSPORT AND METABOLISM 07/09/2008 ADRIANA DO JACE K 078.10 VIRAL WARTS UNSPECIFIED 07/09/2008 WRIGHT DO JACE K 271.9 UNSPECIFIED DISORDER OF CARBOHYDRATE TRANSPORT AND METABOLISM 09/17/2008 V72.31 NUT TAPPER EXAM, ROUTINE 09/17/2008 KEE HESS DO V72.31 NUT TAPPER EXAM, ROUTINE 09/17/2008 V72.31 NUT TAPPER EXAM, ROUTINE 09/17/2008 WRIGHT DOCURLYA K V72.31 NUT TAPPER EXAM, ROUTINE 09/17/2008 WRIGHT DO JACE K V72.31 NUT TAPPER EXAM, ROUTINE 09/17/2008 WRIGHT DO, JACE K V72.31 NUT TAPPER EXAM, ROUTINE 09/17/2008 WRIGHT DO, JACE K V72.31 NUT TAPPER EXAM, ROUTINE 09/17/2008 DON NERI APRN V72.31 NUT TAPPER EXAM, ROUTINE 09/17/2008 WRIGHT DO, JACE K V72.31 NUT TAPPER EXAM, ROUTINE 09/17/2008 HONEY GONZALEZ MD V72.31 NUT TAPPER EXAM, ROUTINE 09/17/2008 DON NERI APRN V72.31 NUT TAPPER EXAM, ROUTINE 09/17/2008 WRIGHT DO, JACE K V72.31 NUT TAPPER EXAM, ROUTINE 09/20/2008 788.1 DYSURIA 09/20/2008 KEE HESS DO 788.1 DYSURIA 09/20/2008 788.1 DYSURIA 09/20/2008 WRIGHT DO, JACE K 788.1 DYSURIA 09/20/2008 WRIGHT DO, JACE K 788.1 DYSURIA 09/20/2008 WRIGHT DO, JACE K 788.1 DYSURIA 09/20/2008 WRIGHT DO, JACE K 788.1 DYSURIA 09/20/2008 DON NERI APRN 788.1 DYSURIA 09/20/2008 WRIGHT DO, JACE K 788.1 DYSURIA 09/20/2008 HONEY GONZALEZ MD 788.1 DYSURIA 09/20/2008 DON NERI APRN 788.1 DYSURIA 09/20/2008 WRIGHT DO, JACE K 788.1 DYSURIA 09/25/2008 112.1 CANDIDIASIS VAGINAL 09/25/2008 KEE HESS DO 112.1 CANDIDIASIS VAGINAL 09/25/2008 112.1 CANDIDIASIS VAGINAL 09/25/2008 WRIGHT DO, JACE K 112.1 CANDIDIASIS VAGINAL 09/25/2008 WRIGHT DO, JACE K 112.1 CANDIDIASIS VAGINAL 09/25/2008 WRIGHT DO, JACE K 112.1 CANDIDIASIS VAGINAL 09/25/2008 WRIGHT DO, JACE K 112.1 CANDIDIASIS VAGINAL 09/25/2008 DON NERI APRN 112.1 CANDIDIASIS VAGINAL 09/25/2008 WRIGHT DO, JACE K 112.1 CANDIDIASIS VAGINAL 09/25/2008 HONEY GONZALEZ MD 112.1 CANDIDIASIS VAGINAL 09/25/2008 DON NERI APRN 112.1 CANDIDIASIS VAGINAL 09/25/2008 WRIGHT DO, JACE K 112.1 CANDIDIASIS VAGINAL 10/15/2008 300.02 AN GEN ANXIETY 10/15/2008 KEE HESS DO 300.02 AN GEN ANXIETY 10/15/2008 300.02 AN GEN ANXIETY 10/15/2008 WRIGHT DO, JACE K 300.02 AN GEN ANXIETY 10/15/2008 WRIGHT DO, JACE K 300.02 AN GEN ANXIETY 10/15/2008 WRIGHT DO, JACE K 300.02 AN GEN ANXIETY 10/15/2008 WRIGHT DO, JACE K 300.02 AN GEN ANXIETY 10/15/2008 DON NERI APRN 300.02 AN GEN ANXIETY 10/15/2008 WRIGHT DO, JACE K 300.02 AN GEN ANXIETY 10/15/2008 HONEY GONZALEZ MD 300.02 AN GEN ANXIETY 10/15/2008 DON NERI APRN 300.02 AN GEN ANXIETY 10/15/2008 WRIGHT DO, JACE K 300.02 AN GEN ANXIETY 04/16/2009 465.9 UPPER RESPIRATORY INFECTION 04/16/2009 KEE HESS DO 465.9 UPPER RESPIRATORY INFECTION 04/16/2009 465.9 UPPER RESPIRATORY INFECTION 04/16/2009 WRIGHT DO, JACE K 465.9 UPPER RESPIRATORY INFECTION 04/16/2009 WRIGHT DO, JACE K 465.9 UPPER RESPIRATORY INFECTION 04/16/2009 WRIGHT DO, JACE K 465.9 UPPER RESPIRATORY INFECTION 04/16/2009 WRIGHT DO, JACE K 465.9 UPPER RESPIRATORY INFECTION 04/16/2009 DON NERI APRN 465.9 UPPER RESPIRATORY INFECTION 04/16/2009 WRIGHT DO, JACE K 465.9 UPPER RESPIRATORY INFECTION 04/16/2009 HONEY GONZALEZ MD 465.9 UPPER RESPIRATORY INFECTION 04/16/2009 DON NERI APRN 465.9 UPPER RESPIRATORY INFECTION 04/16/2009 WRIGHT DO, JACE K 465.9 UPPER RESPIRATORY INFECTION 06/16/2010 703.0 INGROWN TOENAIL (infection) 06/16/2010 KEE HESS DO 703.0 INGROWN TOENAIL (infection) 06/16/2010 703.0 INGROWN TOENAIL (infection) 06/16/2010 WRIGHT DO, JACE K 703.0 INGROWN TOENAIL (infection) 06/16/2010 WRIGHT DO, JACE K 703.0 INGROWN TOENAIL (infection) 06/16/2010 WRIGHT DO, JACE K 703.0 INGROWN TOENAIL (INFECTION) 06/16/2010 WRIGHT DO, JACE K 703.0 INGROWN TOENAIL (INFECTION) 06/16/2010 ODN NERI APRN 703.0 INGROWN TOENAIL (INFECTION) 06/16/2010 JACE WRIGHT DO 703.0 INGROWN TOENAIL (INFECTION) 06/16/2010 HONEY GONZALEZ MD 703.0 INGROWN TOENAIL (INFECTION) 06/16/2010 DON NERI APRN 703.0 INGROWN TOENAIL (INFECTION) 06/16/2010 JACE WRIGHT DO 703.0 INGROWN TOENAIL (INFECTION) 02/02/2011 Ot 780.50 SLEEP DISTURBANCE NOS 05/07/2011 V25.49 CONTRACEPTION SURVEILLANCE (REPEAT RX) 05/07/2011 KEE HESS DO V25.49 CONTRACEPTION SURVEILLANCE (REPEAT RX) 05/07/2011 V25.49 CONTRACEPTION SURVEILLANCE (REPEAT RX) 05/07/2011 JACE WRIGHT DO V25.49 CONTRACEPTION SURVEILLANCE (REPEAT RX) 05/07/2011 JACE WRIGHT DO V25.49 CONTRACEPTION SURVEILLANCE (REPEAT RX) 05/07/2011 JACE WRIGHT DO V25.49 CONTRACEPTION SURVEILLANCE (REPEAT RX) 05/07/2011 JACE WRIGHT DO V25.49 CONTRACEPTION SURVEILLANCE (REPEAT RX) 05/07/2011 DON NERI APRN V25.49 CONTRACEPTION SURVEILLANCE (REPEAT RX ) 05/07/2011 JACE WRIGHT DO V25.49 CONTRACEPTION SURVEILLANCE (REPEAT RX) 05/07/2011 HONEY GONZALEZ MD V25.49 CONTRACEPTION SURVEILLANCE (REPEAT RX) 05/07/2011 DON NERI APRN V25.49 CONTRACEPTION SURVEILLANCE (REPEAT RX ) 05/07/2011 JACE WRIGHT DO V25.49 CONTRACEPTION SURVEILLANCE (REPEAT RX) 08/31/2011 V76.19 OTHER SCREENING BREAST EXAMINATION 08/31/2011 V76.2 CERVICAL CANCER SCREENING (PAP SMEAR) 08/31/2011 KEE HESS DO V76.19 OTHER SCREENING BREAST EXAMINATION 08/31/2011 KEE HESS DO V76.2 CERVICAL CANCER SCREENING (PAP SMEAR) 08/31/2011 V76.19 OTHER SCREENING BREAST EXAMINATION 08/31/2011 V76.2 CERVICAL CANCER SCREENING (PAP SMEAR) 08/31/2011 WRIGHT DO, JACE K V76.19 OTHER SCREENING BREAST EXAMINATION 08/31/2011 WRIGHT DOCURLYA K V76.2 CERVICAL CANCER SCREENING (PAP SMEAR) 08/31/2011 WRIGHT DO JACE K V76.19 OTHER SCREENING BREAST EXAMINATION 08/31/2011 WRIGHT DO JACE K V76.2 CERVICAL CANCER SCREENING (PAP SMEAR) 08/31/2011 WRIGHT DO JACE K V76.19 OTHER SCREENING BREAST EXAMINATION 08/31/2011 WRIGHT DOCURLYA K V76.2 CERVICAL CANCER SCREENING (PAP SMEAR) 08/31/2011 WRIGHT DO JACE K V76.19 OTHER SCREENING BREAST EXAMINATION 08/31/2011 WRIGHT CURLY LRA K V76.2 CERVICAL CANCER SCREENING (PAP SMEAR) 08/31/2011 DON NERI APRN V76.19 OTHER SCREENING BREAST EXAMINATION 08/31/2011 DON NERI APRN V76.2 CERVICAL CANCER SCREENING (PAP SMEAR) 08/31/2011 CURLY WRIGHT DOA K V76.19 OTHER SCREENING BREAST EXAMINATION 08/31/2011 CURLY WRIGHT DOA K V76.2 CERVICAL CANCER SCREENING (PAP SMEAR) 08/31/2011 HONEY GONZALEZ MD V76.19 OTHER SCREENING BREAST EXAMINATION 08/31/2011 HONEY GONZALEZ MD V76.2 CERVICAL CANCER SCREENING (PAP SMEAR) 08/31/2011 DON NERI APRN V76.19 OTHER SCREENING BREAST EXAMINATION 08/31/2011 DON NERI APRN V76.2 CERVICAL CANCER SCREENING (PAP SMEAR) 08/31/2011 CURLY WRIGHT DOA K V76.19 OTHER SCREENING BREAST EXAMINATION 08/31/2011 CURLY WRIGHT DOA K V76.2 CERVICAL CANCER SCREENING (PAP SMEAR) 04/30/2012 Ot 780.4 DIZZINESS AND GIDDINESS 04/30/2012 Ot 787.01 NAUSEA WITH VOMITING 04/30/2012 Ot 789.06 ABDOMINAL PAIN, EPIGASTRIC 08/09/2012 JACE WRIGHT DO K V25.9 CONTRACEPTION MANAGEMENT 08/09/2012 CURLY WRIGHT DOA K V25.9 CONTRACEPTION MANAGEMENT 08/09/2012 CURLY WRIGHT DOA K V25.9 CONTRACEPTION MANAGEMENT 08/09/2012 WRIGHT DO JACE K V25.9 CONTRACEPTION MANAGEMENT 08/09/2012 DON NERI APRN V25.9 CONTRACEPTION MANAGEMENT 08/09/2012 JACE WRIGHT DO V25.9 CONTRACEPTION MANAGEMENT 08/09/2012 HONEY GONZALEZ MD V25.9 CONTRACEPTION MANAGEMENT 08/09/2012 DON NERI APRN V25.9 CONTRACEPTION MANAGEMENT 08/09/2012 ADRIANA LRCURLYA K V25.9 CONTRACEPTION MANAGEMENT 11/28/2012 ADRIANA LRCURLYA K V25.09 CONTRACEPTIVE COUNSELING - GENERAL 11/28/2012 ADRIANA LRCURLYA K V76.10 BREAST CANCER SCREENING 11/28/2012 WRIGHT CURLY LRA K V25.09 CONTRACEPTIVE COUNSELING - GENERAL 11/28/2012 WRIGHT DO JACE K V76.10 BREAST CANCER SCREENING 11/28/2012 DON NERI APRN V25.09 CONTRACEPTIVE COUNSELING - GENERAL 11/28/2012 DON NERI APRN V76.10 BREAST CANCER SCREENING 11/28/2012 ADRIANA JACE LR V25.09 CONTRACEPTIVE COUNSELING - GENERAL 11/28/2012 WRIGHT CURLY LRA K V76.10 BREAST CANCER SCREENING 11/28/2012 HONEY GONZALEZ MD V25.09 CONTRACEPTIVE COUNSELING - GENERAL 11/28/2012 HONEY GONZALEZ MD V76.10 BREAST CANCER SCREENING 11/28/2012 DON NERI APRN V25.09 CONTRACEPTIVE COUNSELING - GENERAL 11/28/2012 DON NERI APRN V76.10 BREAST CANCER SCREENING 11/28/2012 WRIGHT JACE LR V25.09 CONTRACEPTIVE COUNSELING - GENERAL 11/28/2012 WRIGHT CURLY LRA K V76.10 BREAST CANCER SCREENING 06/15/2013 HAILEE VINES, BRENDEN [place] Ot 787.91 DIARRHEA 06/15/2013 HAILEE VINES, BRENDEN [place] Ot 789.00 ABDOMINAL PAIN, UNSPECIFIED SITE 06/22/2013 ANA VINES, ESTELLE Brandon Ot 558.9 NONINF GASTROENTERIT NEC 08/27/2013 IBETH ZIMMERMAN DO Ot 250.00 DIAB PARMINDER WO COMPL, TYPE II OR UNSPEC TY 08/27/2013 IBETH ZIMMERMAN DO Ot 300.00 ANXIETY STATE NOS 08/27/2013 IBETH ZIMMERMAN DO Ot 311 DEPRESSIVE DISORDER NEC 08/27/2013 IBETH ZIMMERMAN DO Ot 338.29 OTHER CHRONIC PAIN 08/27/2013 IBETH ZIMMERMAN DO Ot 558.9 NONINF GASTROENTERIT NEC 08/27/2013 IBETH ZIMMERMAN DO Lan Ot 599.0 URIN TRACT INFECTION NOS 08/27/2013 IBETH ZIMMERMAN DO Lan Ot 724.5 BACKACHE NOS 08/27/2013 IBETH ZIMMERMAN DO Lan Ot 789.00 ABDOMINAL PAIN, UNSPECIFIED SITE 09/17/2013 NIKO VINES, DEREJE Roa Ot 553.3 DIAPHRAGMATIC HERNIA 09/17/2013 NIKO VINES, DEREJE Roa Ot 789.06 ABDOMINAL PAIN, EPIGASTRIC 09/19/2013 NIKO VINES, DEREJE Roa Ot 575.11 CHRONIC CHOLECYSTITIS 07/28/2014 Ot 721.3 07/28/2014 BLAINE MORE CNC MANUFACTURING ENGINEER Ot 256.4 07/28/2014 BLAINE MORE CNC MANUFACTURING ENGINEER Ot 780.79 07/28/2014 BLAINE MORE CNC MANUFACTURING ENGINEER Ot 240.9 07/28/2014 ANA VINES, ESTELLE Brandon Ot V72.84 07/28/2014 KAMRYN MORE DO Ot 536.8 07/28/2014 KAMRYN MORE DO Ot 789.01 07/28/2014 BLAINE MORE CNC MANUFACTURING ENGINEER Ot 536.8 07/28/2014 BLAINE MORE CNC MANUFACTURING ENGINEER Ot 789.00 07/28/2014 NIKO VINES, DEREJE Roa Ot 575.11 07/28/2014 NIKO VINES, DEREJE Roa Ot V72.63 07/28/2014 NKIO VINES, DEREJE Roa Ot V74.8 07/28/2014 NIKO VINES, DEREJE Roa Ot V72.84 07/28/2014 ELSIE IBETH Ot 682.2 CELLULITIS OF TRUNK 07/28/2014 IBETH ZIMMERMAN DO Ot 706.2 SEBACEOUS CYST 07/28/2014 IBETH ZIMMERMAN DO Ot 782.2 LOCAL SUPRFICIAL SWELLNG 07/28/2014 IBETH ZIMMERMAN DO Ot L72.3 SEBACEOUS CYST 08/23/2014 MATTPATRICK METAL MACHINE OPERATOR Ot V57.21 08/23/2014 MATT PATRICK E METAL MACHINE OPERATOR Ot V58.78 08/27/2014 MATT PATRICK E METAL MACHINE OPERATOR Ot V57.21 08/27/2014 MATT, PATRICK E METAL MACHINE OPERATOR Ot V58.78 08/30/2014 MATT, PATRICK E METAL MACHINE OPERATOR Ot V57.21 08/30/2014 MATT, PATRICK E METAL MACHINE OPERATOR Ot V58.78 09/02/2014 MATT, PATRICK E METAL MACHINE OPERATOR Ot V57.21 09/02/2014 MATT, PATRICK E METAL MACHINE OPERATOR Ot V58.78 09/05/2014 MATT, PATRICK E METAL MACHINE OPERATOR Ot V57.21 09/05/2014 MATT, PATRICK E METAL MACHINE OPERATOR Ot V58.78 09/10/2014 MATT, PATRICK E METAL MACHINE OPERATOR Ot V57.21 09/10/2014 MATT, PATRICK E METAL MACHINE OPERATOR Ot V58.78 09/10/2014 MATT, PATRICK E METAL MACHINE OPERATOR Ot V57.21 09/10/2014 MATT, PATRICK E METAL MACHINE OPERATOR Ot V58.78 09/10/2014 MATT, PATRICK E METAL MACHINE OPERATOR Ot V57.21 09/10/2014 MATT, PATRICK E METAL MACHINE OPERATOR Ot V58.78 09/26/2014 MATT, PATRICK E METAL MACHINE OPERATOR Ot V57.21 09/26/2014 MATT, PATRICK E METAL MACHINE OPERATOR Ot V58.78 09/27/2014 MATT, PATRICK E METAL MACHINE OPERATOR Ot V57.21 ENCOUNTER FOR OCCUPATIONAL THERAPY 09/27/2014 MATT, PATRICK E METAL MACHINE OPERATOR Ot V58.78 AFTERCARE POST SURGERY MUSCULOSKELETAL S 05/09/2015 DAVE PEDROZA DO Ot M79.641 PAIN IN RIGHT HAND 05/09/2015 DAVE PEDROZA DO Ot Z47.89 ENCOUNTER FOR OTHER ORTHOPEDIC AFTERCARE 08/09/2015 BLAINE MORE Ot 256.4 POLYCYSTIC OVARIES 08/09/2015 BLAINE MORE Ot 780.79 OTH MALAISE FATIGUE 08/09/2015 BLAINE MORE Ot 240.9 GOITER NOS 08/09/2015 ANA VINES, ESTELLE Brandon Ot V72.84 EXAM PRE-OPERATIVE NOS 08/09/2015 KAMRYN MORE DO Ot 536.8 STOMACH FUNCTION DIS NEC 08/09/2015 KAMRYN MORE DO Ot 789.01 ABDOMINAL PAIN, RIGHT UPPER QUADRANT 08/09/2015 MORE, BLAINE L CNC MANUFACTURING ENGINEER Ot 536.8 STOMACH FUNCTION DIS NEC 08/09/2015 BLAINE MORE CNC MANUFACTURING ENGINEER Ot 789.00 ABDOMINAL PAIN, UNSPECIFIED SITE 08/09/2015 NIKO VINES, DEREJE Roa Ot 575.11 CHRONIC CHOLECYSTITIS 08/09/2015 NIKO VINES, DEREJE Roa Ot V72.63 PRE-PROCEDURAL LABORATORY EXAMINATION 08/09/2015 NIKO VINES, DEREJE Roa Ot V74.8 SCREEN-BACTERIAL DIS NEC 08/09/2015 NIKO VINES, DEREJE Roa Ot V72.84 EXAM PRE-OPERATIVE NOS 08/09/2015 HOME CAPONE Ot E86.9 VOLUME DEPLETION, UNSPECIFIED 08/09/2015 HOME CAPONE Ot K29.70 GASTRITIS, UNSPECIFIED, WITHOUT BLEEDING 08/09/2015 HOME CAPONE Ot R11.10 VOMITING, UNSPECIFIED 08/13/2015 HOME CAPONE Ot E86.9 VOLUME DEPLETION, UNSPECIFIED 08/13/2015 SEVERINO CAPONEEN Yung Ot K29.70 GASTRITIS, UNSPECIFIED, WITHOUT BLEEDING 08/13/2015 HOME CAPONE Ot R11.10 VOMITING, UNSPECIFIED 12/06/2015 ELSIE DO, IBETH K Ot E11.9 TYPE 2 DIABETES MELLITUS WITHOUT COMPLIC 12/06/2015 ELSIE DO, IBETH K Ot N39.0 URINARY TRACT INFECTION, SITE NOT SPECIF 12/06/2015 ELSIE DO, IBETH K Ot R10.10 UPPER ABDOMINAL PAIN, UNSPECIFIED 12/06/2015 ELSIE DO, IBETH K Ot Z79.84 PENITENTIARY (CURRENT) USE OF ORAL HYPOGLYC 12/06/2015 ELSIE DO, IBETH K Ot Z79.899 OTHER PENITENTIARY (CURRENT) DRUG THERAPY 12/08/2015 MARIN VINES, FILOMENA Brandon Ot E11.9 TYPE 2 DIABETES MELLITUS WITHOUT COMPLIC 12/08/2015 MARIN VINES, FILOMENA Brandon Ot R11.2 NAUSEA WITH VOMITING, UNSPECIFIED 12/08/2015 FILOMENA FUNES MD Ot R19.7 DIARRHEA, UNSPECIFIED 12/08/2015 FILOMENA FUNES MD Ot Z79.84 PENITENTIARY (CURRENT) USE OF ORAL HYPOGLYC 12/08/2015 ELSIE DO, IBETH K Ot E11.9 TYPE 2 DIABETES MELLITUS WITHOUT COMPLIC 12/08/2015 ELSIE DO, IBETH K Ot N39.0 URINARY TRACT INFECTION, SITE NOT SPECIF 12/08/2015 ELSIE DO, BIETH K Ot R10.10 UPPER ABDOMINAL PAIN, UNSPECIFIED 12/08/2015 ELSIE DO, IBETH K Ot Z79.84 WATER POLLUTION SPECIALIST (CURRENT) USE OF ORAL HYPOGLYC 12/08/2015 ELSIE DO, IBETH K Ot 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 12/09/2015 FILOMENA FUNES MD Ot E11.9 TYPE 2 DIABETES MELLITUS WITHOUT COMPLIC 12/09/2015 FILOMENA FUNES MD Ot R11.2 NAUSEA WITH VOMITING, UNSPECIFIED 12/09/2015 FILOMENA FUNES MD, Ot R19.7 DIARRHEA, UNSPECIFIED 12/09/2015 FILOMENA FUNES MD, Ot Z79.84 PENITENTIARY (CURRENT) USE OF ORAL HYPOGLYC 12/16/2015 ELSIE DO, IBETH K Ot E11.9 TYPE 2 DIABETES MELLITUS WITHOUT COMPLIC 12/16/2015 ELSIE DO, IBETH K Ot N39.0 URINARY TRACT INFECTION, SITE NOT SPECIF 12/16/2015 ELSIE DO, IBETH K Ot R10.10 UPPER ABDOMINAL PAIN, UNSPECIFIED 12/16/2015 ELSIE DO, IBETH K Ot Z79.84 PENITENTIARY (CURRENT) USE OF ORAL HYPOGLYC 12/16/2015 ELSIE DO, IBETH K Ot Z79.899 OTHER PENITENTIARY (CURRENT) DRUG THERAPY 01/17/2016 SWATHI CORCORAN MD Ot E11.9 TYPE 2 DIABETES MELLITUS WITHOUT COMPLIC 01/17/2016 SWATHI CORCORAN MD Ot G43.909 MIGRAINE, UNSP, NOT INTRACTABLE, WITHOUT 01/17/2016 SWATHI CORCORAN MD Ot Z79.84 PENITENTIARY (CURRENT) USE OF ORAL HYPOGLYC 01/17/2016 SWATHI CORCORAN MD Ot 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 01/19/2016 SWATHI CORCORAN MD Ot E11.9 TYPE 2 DIABETES MELLITUS WITHOUT COMPLIC 01/19/2016 SWATHI CORCORAN MD Ot G43.909 MIGRAINE, UNSP, NOT INTRACTABLE, WITHOUT 01/19/2016 SWATHI CORCORAN MD Ot Z79.84 PENITENTIARY (CURRENT) USE OF ORAL HYPOGLYC 01/19/2016 NILO VINES, SWATHI Garibay Ot Z79.899 OTHER PENITENTIARY (CURRENT) DRUG THERAPY 01/19/2016 NILO VINES, SWATHI Garibay Ot E11.9 TYPE 2 DIABETES MELLITUS WITHOUT COMPLIC 01/19/2016 NILO VINES, SWATHI Garibay Ot G43.909 MIGRAINE, UNSP, NOT INTRACTABLE, WITHOUT 01/19/2016 NILO VINES, SWATHI Garibay Ot Z79.84 PENITENTIARY (CURRENT) USE OF ORAL HYPOGLYC 01/19/2016 SWATHI CORCORAN MD Ot 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 03/05/2016 MICHOACANO MORERICIA L CNC MANUFACTURING ENGINEER Ot 256.4 POLYCYSTIC OVARIES 03/05/2016 ARGENIS BLAINE L CNC MANUFACTURING ENGINEER Ot 780.79 OTH MALAISE FATIGUE 03/05/2016 ARGENIS BLAINE L CNC MANUFACTURING ENGINEER Ot 240.9 GOITER NOS 03/05/2016 ANA VINES, ESTELLE Brandon Ot V72.84 EXAM PRE-OPERATIVE NOS 03/05/2016 KAMRYN MORE DO Ot 536.8 STOMACH FUNCTION DIS NEC 03/05/2016 KAMRYN MORE DO Ot 789.01 ABDOMINAL PAIN, RIGHT UPPER QUADRANT 03/05/2016 MICHOACANO MORERICIA L CNC MANUFACTURING ENGINEER Ot 536.8 STOMACH FUNCTION DIS NEC 03/05/2016 MICHOACANO MORERICIA L CNC MANUFACTURING ENGINEER Ot 789.00 ABDOMINAL PAIN, UNSPECIFIED SITE 03/05/2016 NIKO VINES, DEREJE Roa Ot 575.11 CHRONIC CHOLECYSTITIS 03/05/2016 NIKO VINES, DEREJE Roa Ot V72.63 PRE-PROCEDURAL LABORATORY EXAMINATION 03/05/2016 NIKO VINES, DEREJE Roa Ot V74.8 SCREEN-BACTERIAL DIS NEC 03/05/2016 NIKO VINES, DEREJE Roa Ot V72.84 EXAM PRE-OPERATIVE NOS 03/05/2016 MICHOACANO MORERICIA L CNC MANUFACTURING ENGINEER Ot 256.4 POLYCYSTIC OVARIES 03/05/2016 ARGENIS BLAINE L CNC MANUFACTURING ENGINEER Ot 780.79 OTH MALAISE FATIGUE 03/05/2016 MICHOACANO MORERICIA L CNC MANUFACTURING ENGINEER Ot 240.9 GOITER NOS 03/05/2016 ANA VINES, ESTELLE Brandon Ot V72.84 EXAM PRE-OPERATIVE NOS 03/05/2016 KAMRYN MORE DO Ot 536.8 STOMACH FUNCTION DIS NEC 03/05/2016 MORE DOKAMRYN Ot 789.01 ABDOMINAL PAIN, RIGHT UPPER QUADRANT 03/05/2016 ARGENISBLAINE CNC MANUFACTURING ENGINEER Ot 536.8 STOMACH FUNCTION DIS NEC 03/05/2016 ARGENISMICHOACANOBLAINE L CNC MANUFACTURING ENGINEER Ot 789.00 ABDOMINAL PAIN, UNSPECIFIED SITE 03/05/2016 NIKO VINES, DEREJE Roa Ot 575.11 CHRONIC CHOLECYSTITIS 03/05/2016 NIKO VINES, DEREJE Roa Ot V72.63 PRE-PROCEDURAL LABORATORY EXAMINATION 03/05/2016 NIKO VINES, DEREJE Roa Ot V74.8 SCREEN-BACTERIAL DIS NEC 03/05/2016 NIKO VINES, DEREJE Roa Ot V72.84 EXAM PRE-OPERATIVE NOS 03/08/2016 KAMRYN MORE DO Ot R51 HEADACHE 03/18/2016 KAMRYN MORE DO Ot R51 HEADACHE 04/12/2016 KAMRYN MORE DO Ot R51 HEADACHE 04/23/2016 KAMRYN MORE DO Ot R51 HEADACHE 05/05/2016 HOME CAPONE Ot E11.9 TYPE 2 DIABETES MELLITUS WITHOUT COMPLIC 05/05/2016 HOME CAPONE Ot K29.70 GASTRITIS, UNSPECIFIED, WITHOUT BLEEDING 05/05/2016 HOME CAPONE Ot K44.9 DIAPHRAGMATIC HERNIA WITHOUT OBSTRUCTION 05/05/2016 HOME CAPONE Ot R10.13 EPIGASTRIC PAIN 05/05/2016 HOME CAPONE Ot Z79.84 WATER POLLUTION SPECIALIST (CURRENT) USE OF ORAL HYPOGLYC 05/05/2016 HOME CAPONE Ot E11.9 TYPE 2 DIABETES MELLITUS WITHOUT COMPLIC 05/05/2016 HOME CAPONE Ot K29.70 GASTRITIS, UNSPECIFIED, WITHOUT BLEEDING 05/05/2016 HOME CAPONE Ot K44.9 DIAPHRAGMATIC HERNIA WITHOUT OBSTRUCTION 05/05/2016 HOME CAPONE Ot R10.13 EPIGASTRIC PAIN 05/05/2016 HOME CAPONE Ot Z79.84 WATER POLLUTION SPECIALIST (CURRENT) USE OF ORAL HYPOGLYC 05/09/2016 HOME CAPONE Ot E11.9 TYPE 2 DIABETES MELLITUS WITHOUT COMPLIC 05/09/2016 HOME CAPONE Ot K29.70 GASTRITIS, UNSPECIFIED, WITHOUT BLEEDING 05/09/2016 HOME CAPONE Ot K44.9 DIAPHRAGMATIC HERNIA WITHOUT OBSTRUCTION 05/09/2016 HOME CAPONE Ot R10.13 EPIGASTRIC PAIN 05/09/2016 HOME CAPONE Ot Z79.84 WATER POLLUTION SPECIALIST (CURRENT) USE OF ORAL HYPOGLYC Procedures Code [place] [address] URINE TEST (IN-HOUSE) 02/03/2012 J1055 DEPO-PROVERA INJ 150 MG 02/03/2012 60012 THERAPUTIC INJ SQ/IM 02/03/2012 17199 PSYCH PHARM MGMT 02/04/2012 17075 URINE TEST (IN-HOUSE) 05/08/2012 J1050 DEPO PROVERA 02/2012 13161 URINE TEST (IN-HOUSE) 08/09/2012 19643 THERAPUTIC INJ SQ/IM 08/09/2012 J1050 DEPO PROVERA 04/2012 09588 THERAPUTIC INJ SQ/IM 11/21/2012 J1050 DEPO PROVERA 77625 THERAPUTIC INJ SQ/IM 11/21/2012 J1050 DEPO PROVERA 00469 URINE TEST (IN-HOUSE) 11/21/2012 10707 URINE TEST (IN-HOUSE) 11/21/2012 76511 TEST, URINE (IN-HOUSE) 03/09/2013 60902 THERAPUTIC INJ SQ/IM 03/09/2013 J1050 DEPO PROVERA 53026 THERAPUTIC INJ SQ/IM 06/29/2013 J1050 DEPO PROVERA 08066 TEST, URINE (IN-HOUSE) 06/29/2013 J1050 DEPO PROVERA 03/2014 20051 TEST, URINE (IN-HOUSE) 05/09/2014 22632 THERAPUTIC INJ SQ/IM 05/09/2014 Results Test Result Range Complete blood count (CBC) with automated white blood cell (WBC) differential - 12/06/15 18:25 Blood leukocytes automated count (number/volume) 10.4 10*3/ uL 4.3-11.0 Blood erythrocytes automated count (number/volume) 4.71 10*6 /uL 4.35-5.85 Venous blood hemoglobin measurement (mass/volume) 14.6 g/dL 11.5-16.0 Blood hematocrit (volume fraction) 41 % 35-52 Automated erythrocyte mean corpuscular volume 87 [foz_us] 80-99 Automated erythrocyte mean corpuscular hemoglobin (mass per erythrocyte) 31 pg 25-34 Automated erythrocyte mean corpuscular hemoglobin concentration measurement ( mass/volume) 36 g/dL 32-36 Automated erythrocyte distribution width ratio 12.0 % 10.0-14.5 Automated blood platelet count (count/volume) 264 10*3/uL 130-400 Automated blood platelet mean volume measurement 10.5 [foz_ us] 7.4-10.4 Automated blood neutrophils/100 leukocytes 58 % 42-75 Automated blood lymphocytes/100 leukocytes 33 % 12-44 Blood monocytes/100 leukocytes 8 % 0-12 Automated blood eosinophils/100 leukocytes 1 % 0-10 Automated blood basophils/100 leukocytes 0 % 0-10 Blood neutrophils automated count (number/volume) 6.0 10*3 1.8-7.8 Blood lymphocytes automated count (number/volume) 3.4 10*3 1.0-4.0 Blood monocytes automated count (number/volume) 0.8 10*3 0.0-1.0 Automated eosinophil count 0.1 10*3/uL 0.0-0.3 Automated blood basophil count (count/volume) 0.0 10*3/uL 0.0-0.1 Comprehensive metabolic panel - 12/06/15 18:25 Serum or plasma sodium measurement (moles/volume) 142 mmol/ L 135-145 Serum or plasma potassium measurement (moles/volume) 3.6 mmol/L 3.6-5.0 Serum or plasma chloride measurement (moles/volume) 114 mmol /L 98-107 Carbon dioxide 21 mmol/L 21-32 Serum or plasma anion gap determination (moles/volume) 7 mmol/L 5-14 Serum or plasma urea nitrogen measurement (mass/volume) 14 mg/dL 7-18 Serum or plasma creatinine measurement (mass/volume) 0.74 mg /dL 0.60-1.30 Serum or plasma urea nitrogen/creatinine mass ratio 19 NRG Serum or plasma creatinine measurement with calculation of estimated glomerular filtration rate > NRG Serum or plasma glucose measurement (mass/volume) 96 mg/dL 70-105 Serum or plasma calcium measurement (mass/volume) 8.9 mg/dL 8.5-10.1 Serum or plasma total bilirubin measurement (mass/volume) 1.4 mg/dL 0.1-1.0 Serum or plasma alkaline phosphatase measurement (enzymatic activity/volume) 50 U/L 40-136 Serum or plasma aspartate aminotransferase measurement (enzymatic activity/ volume) 12 U/L 5-34 Serum or plasma alanine aminotransferase measurement (enzymatic activity/volume ) 19 U/L 0-55 Serum or plasma protein measurement (mass/volume) 6.8 g/dL 6.4-8.2 Serum or plasma albumin measurement (mass/volume) 4.2 g/dL 3.2-4.5 Serum or plasma amylase measurement (enzymatic activity/volume) - 12/06/15 18: 25 Serum or plasma amylase measurement (enzymatic activity/volume) 65 U/L 25-125 Lipase - 12/06/15 18:25 Lipase 35 U/L 8-78 Serum or plasma choriogonadotropin ( test) detection - 12/06/15 18:25 Serum or plasma choriogonadotropin ( test) detection NEGATIVE NEGATIVE Urine drug screening test - 12/06/15 19:01 Urine phencyclidine detection by screening method NEGATIVE NEGATIVE Urine benzodiazepines detection by screening method NEGATIVE NEGATIVE Urine cocaine detection NEGATIVE NEGATIVE Urine amphetamines detection by screening method POSITIVE NEGATIVE Urine methamphetamine detection by screening method NEGATIVE NEGATIVE Urine cannabinoids detection by screening method NEGATIVE NEGATIVE Urine opiates detection by screening method POSITIVE NEGATIVE Urine barbiturates detection NEGATIVE NEGATIVE Screening urine tricyclic antidepressants detection NEGATIVE NEGATIVE Urine methadone detection by screening method NEGATIVE NEGATIVE Urine oxycodone detection NEGATIVE NEGATIVE Urine propoxyphene detection NEGATIVE NEGATIVE Urine buprenophrine screen NEGATIVE NEGATIVE Complete urinalysis with reflex to culture - 12/06/15 19:01 Urine color determination YELLOW NRG Urine clarity determination CLEAR NRG Urine pH measurement by test strip 5 5- 9 Specific gravity of urine by test strip 1.025 1.016-1.022 Urine protein assay by test strip, semi-quantitative NEGATIVE NEGATIVE Urine glucose detection by automated test strip NEGATIVE NEGATIVE Erythrocytes detection in urine sediment by light microscopy NEGATIVE NEGATIVE Urine ketones detection by automated test strip NEGATIVE NEGATIVE Urine nitrite detection by test strip NEGATIVE NEGATIVE Urine total bilirubin detection by test strip NEGATIVE NEGATIVE Urine urobilinogen measurement by automated test strip (mass/volume) NORMAL NORMAL Urine leukocyte esterase detection by dipstick 2+ NEGATIVE Automated urine sediment erythrocyte count by microscopy (number/high power field) NONE NRG Automated urine sediment leukocyte count by microscopy (number/high power field ) [HPF] NRG Bacteria detection in urine sediment by light microscopy MODERATE NRG Squamous epithelial cells detection in urine sediment by light microscopy 25-50 NRG Crystals detection in urine sediment by light microscopy NONE NRG Casts detection in urine sediment by light microscopy NONE NRG Mucus detection in urine sediment by light microscopy NEGATIVE NRG Complete urinalysis with reflex to culture YES NRG Renal epithelial cells detection in urine sediment by light microscopy NONE NRG Bacterial urine culture - 12/06/15 19:01 URINE CULTURE RESULTS <10,000/ML NRG Stool leukocytes detection by light microscopy - 12/08/15 07:05 FECAL WBC RESULTS NEGATIVE FOR WBC'S NRG FECAL NOTE FECAL LEUKOCYTES MAY BE INTERMITTENTLY PRESENT OR NRG FECAL NOTE UNEVENLY DISTRIBUTED IN STOOL SPECIMENS, AND WBC NRG FECAL NOTE MORPHOLOGY DEGRADES DURING TRANSPORT NRG FECAL NOTE NOTE: NRG Stool bacteria identification by culture - 12/08/15 07:05 Stool bacteria identification by culture N2 NRG Ova and parasites - 12/08/15 07:05 DATE OF REF LAB REPORT 12/17/15 11:30 NRG OTP NEGATIVE RESULT PARASITES NOT FOUND NRG Complete blood count (CBC) with automated white blood cell (WBC) differential - 12/08/15 07:20 Blood leukocytes automated count (number/volume) 7.3 10*3/ uL 4.3-11.0 Blood erythrocytes automated count (number/volume) 4.77 10*6 /uL 4.35-5.85 Venous blood hemoglobin measurement (mass/volume) 14.7 g/dL 11.5-16.0 Blood hematocrit (volume fraction) 41 % 35-52 Automated erythrocyte mean corpuscular volume 87 [foz_us] 80-99 Automated erythrocyte mean corpuscular hemoglobin (mass per erythrocyte) 31 pg 25-34 Automated erythrocyte mean corpuscular hemoglobin concentration measurement ( mass/volume) 36 g/dL 32-36 Automated erythrocyte distribution width ratio 11.9 % 10.0-14.5 Automated blood platelet count (count/volume) 245 10*3/uL 130-400 Automated blood platelet mean volume measurement 10.6 [foz_ us] 7.4-10.4 Automated blood neutrophils/100 leukocytes 63 % 42-75 Automated blood lymphocytes/100 leukocytes 28 % 12-44 Blood monocytes/100 leukocytes 8 % 0-12 Automated blood eosinophils/100 leukocytes 1 % 0-10 Automated blood basophils/100 leukocytes 0 % 0-10 Blood neutrophils automated count (number/volume) 4.6 10*3 1.8-7.8 Blood lymphocytes automated count (number/volume) 2.1 10*3 1.0-4.0 Blood monocytes automated count (number/volume) 0.6 10*3 0.0-1.0 Automated eosinophil count 0.1 10*3/uL 0.0-0.3 Automated blood basophil count (count/volume) 0.0 10*3/uL 0.0-0.1 Comprehensive metabolic panel - 12/08/15 07:20 Serum or plasma sodium measurement (moles/volume) 139 mmol/ L 135-145 Serum or plasma potassium measurement (moles/volume) 3.5 mmol/L 3.6-5.0 Serum or plasma chloride measurement (moles/volume) 108 mmol /L 98-107 Carbon dioxide 22 mmol/L 21-32 Serum or plasma anion gap determination (moles/volume) 9 mmol/L 5-14 Serum or plasma urea nitrogen measurement (mass/volume) 9 mg /dL 7-18 Serum or plasma creatinine measurement (mass/volume) 0.79 mg /dL 0.60-1.30 Serum or plasma urea nitrogen/creatinine mass ratio 11 NRG Serum or plasma creatinine measurement with calculation of estimated glomerular filtration rate > NRG Serum or plasma glucose measurement (mass/volume) 96 mg/dL 70-105 Serum or plasma calcium measurement (mass/volume) 9.0 mg/dL 8.5-10.1 Serum or plasma total bilirubin measurement (mass/volume) 2.5 mg/dL 0.1-1.0 Serum or plasma alkaline phosphatase measurement (enzymatic activity/volume) 53 U/L 40-136 Serum or plasma aspartate aminotransferase measurement (enzymatic activity/ volume) 12 U/L 5-34 Serum or plasma alanine aminotransferase measurement (enzymatic activity/volume ) 17 U/L 0-55 Serum or plasma protein measurement (mass/volume) 6.8 g/dL 6.4-8.2 Serum or plasma albumin measurement (mass/volume) 4.3 g/dL 3.2-4.5 Complete urinalysis with reflex to culture - 05/04/16 18:00 Urine color determination YELLOW NRG Urine clarity determination CLEAR NRG Urine pH measurement by test strip 5 5- 9 Specific gravity of urine by test strip 1.030 1.016-1.022 Urine protein assay by test strip, semi-quantitative 1+ NEGATIVE Urine glucose detection by automated test strip NEGATIVE NEGATIVE Erythrocytes detection in urine sediment by light microscopy NEGATIVE NEGATIVE Urine ketones detection by automated test strip NEGATIVE NEGATIVE Urine nitrite detection by test strip NEGATIVE NEGATIVE Urine total bilirubin detection by test strip NEGATIVE NEGATIVE Urine urobilinogen measurement by automated test strip (mass/volume) NORMAL NORMAL Urine leukocyte esterase detection by dipstick 1+ NEGATIVE Automated urine sediment erythrocyte count by microscopy (number/high power field) RARE NRG Automated urine sediment leukocyte count by microscopy (number/high power field ) [HPF] NRG Bacteria detection in urine sediment by light microscopy MODERATE NRG Squamous epithelial cells detection in urine sediment by light microscopy 5-10 NRG Crystals detection in urine sediment by light microscopy NONE NRG Casts detection in urine sediment by light microscopy NONE NRG Mucus detection in urine sediment by light microscopy MODERATE NRG Complete urinalysis with reflex to culture NO NRG Complete blood count (CBC) with automated white blood cell (WBC) differential - 05/04/16 18:50 Blood leukocytes automated count (number/volume) 9.1 10*3/ uL 4.3-11.0 Blood erythrocytes automated count (number/volume) 4.51 10*6 /uL 4.35-5.85 Venous blood hemoglobin measurement (mass/volume) 14.0 g/dL 11.5-16.0 Blood hematocrit (volume fraction) 40 % 35-52 Automated erythrocyte mean corpuscular volume 89 [foz_us] 80-99 Automated erythrocyte mean corpuscular hemoglobin (mass per erythrocyte) 31 pg 25-34 Automated erythrocyte mean corpuscular hemoglobin concentration measurement ( mass/volume) 35 g/dL 32-36 Automated erythrocyte distribution width ratio 12.3 % 10.0-14.5 Automated blood platelet count (count/volume) 250 10*3/uL 130-400 Automated blood platelet mean volume measurement 10.6 [foz_ us] 7.4-10.4 Automated blood neutrophils/100 leukocytes 53 % 42-75 Automated blood lymphocytes/100 leukocytes 39 % 12-44 Blood monocytes/100 leukocytes 8 % 0-12 Automated blood eosinophils/100 leukocytes 1 % 0-10 Automated blood basophils/100 leukocytes 0 % 0-10 Blood neutrophils automated count (number/volume) 4.8 10*3 1.8-7.8 Blood lymphocytes automated count (number/volume) 3.5 10*3 1.0-4.0 Blood monocytes automated count (number/volume) 0.7 10*3 0.0-1.0 Automated eosinophil count 0.1 10*3/uL 0.0-0.3 Automated blood basophil count (count/volume) 0.0 10*3/uL 0.0-0.1 Comprehensive metabolic panel - 05/04/16 18:50 Serum or plasma sodium measurement (moles/volume) 141 mmol/ L 135-145 Serum or plasma potassium measurement (moles/volume) 3.9 mmol/L 3.6-5.0 Serum or plasma chloride measurement (moles/volume) 112 mmol /L 98-107 Carbon dioxide 19 mmol/L 21-32 Serum or plasma anion gap determination (moles/volume) 10 mmol/L 5-14 Serum or plasma urea nitrogen measurement (mass/volume) 16 mg/dL 7-18 Serum or plasma creatinine measurement (mass/volume) 0.77 mg /dL 0.60-1.30 Serum or plasma urea nitrogen/creatinine mass ratio 21 NRG Serum or plasma creatinine measurement with calculation of estimated glomerular filtration rate > NRG Serum or plasma glucose measurement (mass/volume) 69 mg/dL 70-105 Serum or plasma calcium measurement (mass/volume) 8.6 mg/dL 8.5-10.1 Serum or plasma total bilirubin measurement (mass/volume) 1.2 mg/dL 0.1-1.0 Serum or plasma alkaline phosphatase measurement (enzymatic activity/volume) 48 U/L 40-136 Serum or plasma aspartate aminotransferase measurement (enzymatic activity/ volume) 16 U/L 5-34 Serum or plasma alanine aminotransferase measurement (enzymatic activity/volume ) 13 U/L 0-55 Serum or plasma protein measurement (mass/volume) 6.3 g/dL 6.4-8.2 Serum or plasma albumin measurement (mass/volume) 3.8 g/dL 3.2-4.5 Lipase - 05/04/16 18:50 Lipase 28 U/L 8-78 Encounters ACCT No. Visit Date/Time Discharge Status Pt. Type Provider Facility Loc./Unit Complaint [id number] 05/09/2014 14:22:00 05/09/2014 23: 59:59 CLS Outpatient JACE WRIGHT DO [id number] 11/14/2013 11:57:00 11/14/2013 23: 59:59 CLS Outpatient DON NERI APRN [id number] 10/02/2013 14:34:00 10/02/2013 23: 59:59 CLS Outpatient HONEY GONZALEZ MD [id number] 06/29/2013 10:44:00 06/29/2013 23: 59:59 CLS Outpatient JACE WRIGHT DO Lan [id number] 03/23/2013 13:19:00 03/23/2013 23: 59:59 CLS Outpatient DON NERI APRN [id number] 03/09/2013 12:23:00 03/09/2013 23: 59:59 CLS Outpatient JACE WRIGHT DO Lan [id number] 11/28/2012 14:50:00 11/28/2012 23: 59:59 CLS Outpatient JACE WRIGHT DO Lan [id number] 11/21/2012 15:31:00 11/21/2012 23: 59:59 CLS Outpatient JACE WRIGHT DO Lan [id number] 08/09/2012 11:46:00 08/09/2012 23: 59:59 CLS Outpatient JACE WRIGHT DO Lan [id number] 05/08/2012 10:24:00 05/08/2012 23: 59:59 CLS Outpatient [id number] 02/04/2012 14:51:00 02/04/2012 23: 59:59 CLS Outpatient KEE HESS DO [id number] 02/03/2012 11:00:00 02/03/2012 23: 59:59 CLS Outpatient
== END 2016-05-04 20:43 | disposition home or self-care (01) ==
LOC: EDUNIT# 17:01 → ER 17:02
DX: K29.70 Gastritis, unspecified, without bleeding (principal); E11.9 Type 2 diabetes mellitus without complications; K44.9 Diaphragmatic hernia without obstruction or gangrene; Z79.84 Long term (current) use of oral hypoglycemic drugs
CPT/HCPCS: 36415; 80053; 81000; 83690; 84703; 85025; 96361; 96374

== ENCOUNTER → 2016-06-17 | Outpatient (CLI) | payer MEDICAID, MEDICARE ==
[~2016-06-17] MED LIST changes: +AMOX500C2 PO; +FAMO-119 PO; +L.AC1CAP6 PO
== END ==
LOC: PREOP 05:42
PROVIDERS: ATTEND Surgery
DX: Z01.818 Encounter for other preprocedural examination (principal); R10.13 Epigastric pain; R19.7 Diarrhea, unspecified

== ENCOUNTER 2016-06-21 07:17 | Day surgery (SDC) | payer MEDICAID, MEDICARE ==
[~2016-06-21] VITALS: Ht 177.8 cm; Wt 111.1 kg
[~2016-06-21 07:17] MED LIST changes: -AMOX500C2 PO; -L.AC1CAP6 PO
[2016-06-21] MEDS ORDERED: NS IV 500 ML 500 ML IV PRN (07:23)
[2016-06-21] MEDS ORDERED: HURRICAINE EXT TUBE (BENZOCAINE) XX PRN (07:30)
[2016-06-21] MEDS ORDERED: NALOXONE 0.4 MG/ML 1 ML (NARCAN) VIAL IVP PRN (07:30)
[2016-06-21] MEDS ORDERED: FLUMAZENIL (ROMAZICON) 0.1 MG/ML 5 ML VIAL INJ PRN (07:30)
[2016-06-21 07:50] VITALS: BP 124/62
[2016-06-21] MEDS ORDERED: MIDAZOLAM 2 MG/2 ML (VERSED) VIAL ONE ×4 (07:54→07:55)
[2016-06-21] MEDS ORDERED: ONDANSETRON 4 MG/2 ML (SDV) Z0FRAN ONE (07:55)
[2016-06-21] MEDS ORDERED: fentaNYL INJECTION 100 MCG/2 ML AMP ONE ×2 (07:55)
[2016-06-21] MEDS: fentaNYL INJECTION 100 MCG/2 ML AMP IVP PRN ×2 (08:20→08:37)
[2016-06-21] MEDS: MIDAZOLAM 2 MG/2 ML (VERSED) VIAL IVP PRN ×3 (08:22→08:35)
--- NOTE | 2016-06-21 08:51 | Conscious Sedation/ASA ---
Conscious Sedation Pre-Proced Time Reviewed: 08:01 ASA Class: 2 Airway Mallampati Classification: (moapa appropriate class) I. II. III, IV Lungs Heart ASA score ASA 1: a normal healthy patient ASA 2: a patient with a mild systemic disease (mid diabetes, controlled hypertension, obesity ASA 3: a patient with a severe systemic disease that limits activity (angina , COPD, prior Myocardial infarction) ASA 4: a patient with an incapacitating disease that is a constant threat to life (CHF, renal failure) ASA 5: a moribund patient not expected to survive 24 hrs. (ruptured aneurysm) ASA 6: a declared brain patient whose organs are being harvested. For emergent operations, add the letter E after the classification Grade 2 Sedation Plan: Discussed options with patient/fam Note The patient is an appropriate candidate to undergo the planned procedure, sedation, and anesthesia. The patient immediately re-assessed prior to indication. DEREJE POPE MD June 21, 2016 8:51 am
--- NOTE | 2016-06-21 08:52 | Endoscopy Procedure Report ---
Endoscopy Report Date: June 21, 2016 Preoperative Diagnosis: epigastric pain. Diarrhea Study Performed: Upper Endoscopy, Colonoscopy Procedure Instrument: Endoscope Endo Procedure/Findings Findings 1.: Normal, Hiatal Hernia, Gastric Ulcer Copy Copies To 1: KAMRYN MORE XAVIER M MD June 21, 2016 8:52 am
--- NOTE | 2016-06-21 08:54 | Discharge Inst-Simple/Standard ---
Discharge Inst-Standard Discharge Medications New, Converted or Re-Newed RX: Other Patient Instructions/Follow Up Plan of Care/Instructions/FU: to use over the counter Lomotil Activity as Tolerated: Yes Discharge Diet: No Restrictions DEREJE POPE MD June 21, 2016 8:54 am
[2016-06-21 09:00] VITALS: BP 129/72
[2016-06-21 10:15] VITALS: BP 129/72
--- NOTE | 2016-06-22 05:07 | OPERATIVE REPORT ---
DATE OF SERVICE: 06/21/2016 PROCEDURES PERFORMED: 1. Upper endoscopy with antral biopsy. 2. Colonoscopy. 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 Due to recurrence of her upper epigastric pain, she returned for an upper endoscopy. In addition , colonoscopy was also offered to evaluate new onset of diarrhea. Informed consent was obtained after reviewing the procedures in detail. DESCRIPTION OF PROCEDURE: Upper GI endoscopy/antral biopsy: She was placed in left lateral decubitus position and her vital signs were monitored. Conscious sedation was achieved using Versed and fentanyl. The flexible gastroscope was introduced down the esophagus, passed into the stomach, into the proximal duodenum. FINDINGS: Esophagus: Grade II esophagitis with a short hiatal hernia. Stomach: A few, shallow erosions were found at the antral. Biopsy for H. Pylori was obtained. Duodenum normal. She tolerated the procedure well and was turned around in preparation for colonoscopy. IMPRESSION: Previous H. pylori gastritis. Esophagitis and antral erosions. Helicobacter status pending. DESCRIPTION OF PROCEDURE: Colonoscopy: Digital rectal examination was unremarkable. The colonoscope was then introduced in the rectum and advanced all the way up to the cecum. The scope was then withdrawn slowly and the mucosa examined in a systematic fashion. There was no abnormality. She tolerated the procedure well and was taken back to the nursing area in stable condition. IMPRESSION: 1. Diarrhea. 2. Normal colonoscopy. 3. 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 Job ID: [id number] DocumentID: [id number] Dictated Date: 06/21/2016 08:48:40 Business Development Coordinator Date: 06/21/2016 14:13:20 Dictated By: DEREJE POPE MD [facility]
[2016-06-22] MEDS ORDERED: AMOX500C2 PO (21:51)
[2016-06-22] MEDS ORDERED: L.AC1CAP6 PO (21:52)
[2016-06-22] MEDS ORDERED: OMEP40CA36 PO (21:56)
== END 2016-06-21 10:15 | disposition home or self-care (01) ==
LOC: ENDO 07:17
PROVIDERS: ATTEND Surgery
DX: K21.9 Gastro-esophageal reflux disease without esophagitis (principal); R19.7 Diarrhea, unspecified; K25.9 Gastric ulcer, unspecified as acute or chronic, without hemorrhage or perforation
CPT/HCPCS: 84703

== ENCOUNTER 2016-06-22 19:31 | Emergency (ER) | payer MEDICAID ==
[~2016-06-22] VITALS: Ht 177.8 cm; Wt 111.1 kg
[2016-06-22] MEDS ORDERED: NS IV 1000 ML 1,000 ML IV SCH (21:00)
[2016-06-22 21:04] LABS: BILIRUBIN,URINE NEGATIVE (NEGATIVE); KETONES,URINE NEGATIVE (NEGATIVE); LEUKOCYTE ESTERASE ,URINE 1+ (NEGATIVE); NITRITE,URINE NEGATIVE (NEGATIVE); PH,URINE 7 (5-9); PROTEIN,URINE NEGATIVE (NEGATIVE); UROBILINOGEN,URINE 1 MG/DL (NORMAL)
--- NOTE | 2016-06-22 21:10 | ED GI ---
General Chief Complaint: Abdominal/GI Problems Stated Complaint: POST COLONOSCOPY/DIARRHEA/FATIGUE/HEADACHE Nursing Triage Note: PT STATES SHE HAD A COLONOSCOPY YESTERDAY AND TODAY IS TIRED, HAS DIARRHEA, AND A LITTLE PAIN. Sepsis Screen: No Definite Risk Source of Information: Patient Exam Limitations: No Limitations History of Present Illness Time Seen By Provider: 21:09 Initial Comments To ER with reports of epigastric discomfort, fatigue, 3 episodes of diarrhea. Patient had an EGD and colonoscopy done here yesterday by Dr. Oconnell for this epigastric pain and diarrhea that she's been having. Dr. Oconnell impression per his operative note shows antral erosions. Timing/Duration: Intermittent Severity/Quality: Moderate Radiation: No Radiation Associated Symptoms: No Nausea/Vomiting Allergies and Home Medications Allergies Coded Allergies: No Known Drug Allergies (Unverified , 04/30/12) Home Medications Amoxicillin 500 Mg Capsule, 500 MG PO TID, #21 Prescribed by: SOPHIA ALICEA on 06/22/162150 Fluoxetine Hcl 10 Mg Capsule, 10 MG PO DAILY, #30 (Reported) Hyoscyamine Sulfate 0.125 Mg Tab.subl, 1-2 TAB SL Q4H, #10 Prescribed by: IBETH ZIMMERMAN on 12/06/152008 L.acidoph & Paracasei,B.lactis 1 Each Capsule, 1 EACH PO TID, #21 Prescribed by: SOPHIA ALICEA on 06/22/162151 Meloxicam 15 Mg Tablet, 15 MG PO DAILY, #30 (Reported) Metformin Hcl 500 Mg Tab.sr.24h, 500 MG PO DAILY, #30 (Reported) Nitrofurantoin Monohyd/M-Cryst 100 Mg Capsule, 100 MG PO BID, #20 Prescribed by: IBETH ZIMMERMAN on 12/06/152010 Omeprazole 40 Mg Capsule., 40 MG PO DAILY PRN for lass he was30, #30 Prescribed by: SOPHIA ALICEA on 06/22/162155 Pantoprazole Sodium 40 Mg Tablet.dr, 40 MG PO DAILY, #15 Prescribed by: IBETH ZIMMERMAN on 12/06/152008 Paroxetine HCl 10 Mg Tablet, #30 (Reported) Paroxetine Hcl 10 Mg Tablet, #30 (Reported) Phentermine HCl 37.5 Mg Tablet, 37.5 MG PO DAILY, (Reported) Potassium Chloride 10 Meq Capsule.sa, 10 MEQ PO DAILY, #30 (Reported) Promethazine HCl 25 Mg Tablet, 25 MG PO Q6H PRN for NAUSEA/VOMITING, #14 Ref 0 Prescribed by: SWATHI CORCORAN on 01/17/16 1614 Sumatriptan Succinate 25 Mg Tablet, 25 MG PO PRN PRN for MIGRAINE, #3 Ref 0 Take 2 tablets first sign of a migraine headache. If still having a headache and 2 hours you may take the third tablet Prescribed by: SWATHI CORCORAN on 01/17/16 1614 Topiramate 25 Mg Tablet, #30 (Reported) Tramadol Hcl 50 Mg Tablet, 50 MG PO Q4H, #20 Prescribed by: IBETH ZIMMERMAN on 07/28/14 2347 Review of Systems Constitutional: see HPI EENTM: No Symptoms Reported Respiratory: No Symptoms Reported Cardiovascular: No Symptoms Reported Gastrointestinal: See HPI, Abdominal Pain, Diarrhea Genitourinary: No Symptoms Reported Musculoskeletal: no symptoms reported Skin: no symptoms reported Psychiatric/Neurological: No Symptoms Reported Past Tmqibcp-Aktrtq-Qthnvu Hx Patient Social History Alcohol Use: Denies Use Recreational Drug Use: No Smoking Status: Never a Smoker Recent Foreign Travel: No Contact w/Someone Who Travel: No Recent Infectious Disease Expo: No Recent Hopitalizations: No Immunizations Up To Date Tetanus Booster (TDap): Unknown Seasonal Allergies Seasonal Allergies: No Surgeries HX Surgeries: Yes (CYST REMOVED, DENTAL; FLEX SIGMOIDOSCOPY) Surgeries: Gallbladder, Tonsillectomy Respiratory Hx Respiratory Disorders: No Cardiovascular Hx Cardiac Disorders: No Neurological Hx Neurological Disorders: No Reproductive System : No (DEPO SHOT) Hx Reproductive Disorders: No Sexually Transmitted Disease: No Genitourinary Hx Genitourinary Disorders: No Gastrointestinal Hx Gastrointestinal Disorders: Yes (S/P HUMZA) Gastrointestinal Disorders: Gall Bladder Disease Musculoskeletal Hx Musculoskeletal Disorders: No Endocrine Hx 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, Non-Insulin dep HEENT HX ENT Disorders: No Cancer Hx Cancer: No Psychosocial Hx Psychiatric Problems: Yes Behavioral Health Disorders: Depression Integumentary HX Skin/Integumentary Disorder: No Blood Transfusions Hx Blood Disorders: No Family Medical History Significant Family History: No Pertinent Family Hx Physical Exam Vital Signs VS - Last 72 Hours, by Label 06/22/16 20:21 Temp 99.4 Pulse 82 Resp 20 B/P (MAP) 128/79 Pulse Ox 98 O2 Delivery Room Air Capillary Refill : Less Than 3 Seconds General Appearance: WD/WN, no apparent distress HEENT: PERRL/EOMI, normal ENT inspection Neck: non-tender, full range of motion Respiratory: normal breath sounds, no respiratory distress, no accessory muscle use Gastrointestinal: normal bowel sounds, soft, tenderness (epigastric) Extremities: normal range of motion, non-tender Neurologic/Psychiatric: alert, normal mood/affect, oriented x 3 Skin: normal color, warm/dry Progress/Results/Core Measures Results/Orders Lab Results Laboratory Tests Test 06/22/16 20:51 06/22/16 21:06 Range/Units Urine Color YELLOW Urine Clarity SLIGHTLY CLOUDY Urine pH 7 5-9 Urine Specific [place] 1.010 L 1.016-1.022 Urine Protein NEGATIVE NEGATIVE Urine Glucose (UA) NEGATIVE NEGATIVE Urine Ketones NEGATIVE NEGATIVE Urine Nitrite NEGATIVE NEGATIVE Urine Bilirubin NEGATIVE NEGATIVE Urine Urobilinogen 1 NORMAL MG/DL Urine Leukocyte Esterase 1+ H NEGATIVE Urine RBC (Auto) NEGATIVE NEGATIVE Urine RBC NONE /HPF Urine WBC 5-10 H /HPF Urine Squamous Epithelial Cells 5-10 /HPF Urine Crystals PRESENT H /LPF Urine Amorphous Sediment MOD DIMITRIOS PHOSPHATE H /LPF Urine Bacteria MODERATE H /HPF Urine Casts NONE /LPF Urine Mucus SMALL H /LPF Urine Culture Indicated YES White Blood Count 8.3 4.3-11.0 10^3/uL Red Blood Count 4.65 4.35-5.85 10^6/uL Hemoglobin 14.4 11.5-16.0 G/DL Hematocrit 42 35-52 % Mean Corpuscular Volume 90 80-99 FL Mean Corpuscular Hemoglobin 31 25-34 PG Mean Corpuscular Hemoglobin Concent 34 32-36 G/DL Red Cell Distribution Width 12.2 10.0-14.5 % Platelet Count 304 130-400 10^3/uL Mean Platelet Volume 10.4 7.4-10.4 FL Neutrophils (%) (Auto) 50 42-75 % Lymphocytes (%) (Auto) 40 12-44 % Monocytes (%) (Auto) 8 0-12 % Eosinophils (%) (Auto) 1 0-10 % Basophils (%) (Auto) 0 0-10 % Neutrophils # (Auto) 4.1 1.8-7.8 X 10^3 Lymphocytes # (Auto) 3.3 1.0-4.0 X 10^3 Monocytes # (Auto) 0.7 0.0-1.0 X 10^3 Eosinophils # (Auto) 0.1 0.0-0.3 10^3/uL Basophils # (Auto) 0.0 0.0-0.1 10^3/uL Sodium Level 141 135-145 MMOL/L Potassium Level 3.6 3.6-5.0 MMOL/L Chloride Level 111 H 98-107 MMOL/L Carbon Dioxide Level 23 21-32 MMOL/L Anion Gap 7 5-14 MMOL/L Blood Urea Nitrogen 9 7-18 MG/DL Creatinine 0.78 0.60-1.30 MG/DL Estimat Glomerular Filtration Rate > 60 BUN/Creatinine Ratio 12 Glucose Level 88 70-105 MG/DL Calcium Level 9.1 8.5-10.1 MG/DL Total Bilirubin 0.9 0.1-1.0 MG/DL Aspartate Amino Transf (AST/SGOT) 10 5-34 U/L Alanine Aminotransferase (ALT/SGPT) 13 0-55 U/L Alkaline Phosphatase 57 40-136 U/L Total Protein 6.3 L 6.4-8.2 G/DL Albumin 3.9 3.2-4.5 G/DL Lipase 42 8-78 U/L My Orders Orders - SOPHIA ALICEA APRN Ns Iv 1000 Ml (Sodium Chloride 0.9%) (06/22/16 21:00) Antacid Suspension (Mylanta Suspension (06/22/16 21:15) Lidocaine 2% Viscous 15 Ml (Xylocaine Vi (06/22/16 21:15) Medications Given in ED Current Medications Medications Dose Ordered Sig/Marcus Route Start Time Stop Time Status Last Admin Dose Admin Al Hydrox/Mg Hydrox/Simethicone 30 ml ONCE ONCE PO 06/22/16 21:15 06/22/16 21:16 DC 06/22/16 21:17 30 ML Lidocaine HCl 15 ml ONCE ONCE PO 06/22/16 21:15 06/22/16 21:16 DC 06/22/16 21:17 15 ML Vital Signs/I&O Vital Sign - Last 12Hours 06/22/16 20:21 Temp 99.4 Pulse 82 Resp 20 B/P (MAP) 128/79 Pulse Ox 98 O2 Delivery Room Air Blood Pressure Mean: 95 Diagnostic Imaging Diagonstic Imaging: Xray Comments NAME: [facility] REC#: [id number] PT STATUS: REG ER : 1985 PHYSICIAN: HOME [facility]ATT[facility] ADMIT DATE: 06/22/16/ER Draft Date of Exam:06/22/16 ACUTE ABD SERIES CLINICAL INDICATION: Patient had colonoscopy yesterday with diarrhea and abdominal pain. EXAMS: X-ray of the chest PA view and x-ray of the abdomen supine and upright views. COMPARISONS: X-ray of the chest and abdomen dated 12/06/2015. FINDINGS: LUNGS/ PLEURA: Lungs are clear. There is no pneumothorax. There is no pleural effusion. MEDIASTINUM: Unremarkable. PULMONARY VASCULATURE: Unremarkable. HEART: Unremarkable. BONES/ EXTRATHORACIC SOFT TISSUE: Unremarkable. ABDOMEN AND PELVIS: Unremarkable x-ray of the abdomen with nonobstructed bowel gas pattern. There is no evidence of abdominal free air. There are no focal calcifications overlying the expected regions/ pathways of both kidneys, ureters, and bladder regions. IMPRESSION: 1: Unremarkable chest x-ray exam with no radiographic evidence of acute cardiopulmonary process. 2: Unremarkable x-ray of the abdomen. Dictated on workstation # [id number] Dict: 06/22/162134 Trans: 06/22/162138 COUNT INCLUDES THE [facility] [id number] Interpreted by: CLIVE CONLEY MD Electronically signed by: Departure Communication Progress Notes 4-patient does report improvement though not complete resolution in pain after menstruation of GI cocktail. We will discharged home with Prilosec Impression Impression: Primary Impression: Diarrhea Additional Impression: Urinary tract infection Disposition: 01 HOME, SELF-CARE Condition: Stable Departure-Patient Inst. Decision time for Depature: 21:50 Referrals: KAMRYN MORE DO (PCP/Family) Primary Care Physician Patient Instructions: Urinary Tract Infection, Adult (DC) Add. Discharge Instructions: 1. Follow-up with your regular doctor and/or surgeon 2. Acid reducers as directed 3. Return to ER for any worsening All discharge instructions reviewed with patient and/or family. Voiced understanding. Scripts Omeprazole (Omeprazole) 40 Mg Capsule. 40 MG PO DAILY Y for lass he was30, #30 CAP Prov: SOPHIA ALICEA FORDER OPERATOR 06/22/16 L.acidoph & Paracasei,B.lactis (Probiotic) 1 Each Capsule 1 EACH PO TID, #21 CAP Prov: SOPHIA ALICEA FORDER OPERATOR 06/22/16 Amoxicillin (Amoxicillin) 500 Mg Capsule 500 MG PO TID, #21 CAP Prov: SOPHIA ALICEA FORDER OPERATOR 06/22/16 SOPHIA ALICEA APRN June 22, 2016 21:10
[2016-06-22] MEDS ORDERED: LIDOCAINE 2% VISCOUS 15 ML UDC PO ONE (21:15)
[2016-06-22] MEDS ORDERED: ANTACID SUSP 30 ML UDC (MYLANTA) PO ONE (21:15)
[2016-06-22 21:26] LABS: BASOPHILS % (AUTO) 0 % (0-10); EOSINOPHILS # (AUTO) 0.1 10^3/uL (0.0-0.3); EOSINOPHILS % (AUTO) 1 % (0-10); LYMPHOCYTES # (AUTO) 3.3 X 10^3 (1.0-4.0); LYMPHOCYTES % (AUTO) 40 % (12-44); MEAN CORPUSCULAR HEMOGLOBIN 31 PG (25-34); MEAN CORPUSCULAR HGB CONC 34 G/DL (32-36); MEAN CORPUSCULAR VOLUME 90 FL (80-99); MEAN PLATELET VOLUME 10.4 FL (7.4-10.4); MONOCYTES # (AUTO) 0.7 X 10^3 (0.0-1.0); MONOCYTES % (AUTO) 8 % (0-12); NEUTROPHILS # (AUTO) 4.1 X 10^3 (1.8-7.8); NEUTROPHILS % (AUTO) 50 % (42-75); PLATELET COUNT 304 10^3/uL (130-400); RED BLOOD COUNT 4.65 10^6/uL (4.35-5.85); RED CELL DISTRIBUTION WIDTH 12.2 % (10.0-14.5); WHITE BLOOD COUNT 8.3 10^3/uL (4.3-11.0)
--- NOTE | 2016-06-22 21:39 | Diagnostic Imaging Report ---
CLINICAL INDICATION: Patient had colonoscopy yesterday with diarrhea and abdominal pain. EXAMS: X-ray of the chest PA view and x-ray of the abdomen supine and upright views. COMPARISONS: X-ray of the chest and abdomen dated 12/06/2015. FINDINGS: LUNGS/ PLEURA: Lungs are clear. There is no pneumothorax. There is no pleural effusion. MEDIASTINUM: Unremarkable. PULMONARY VASCULATURE: Unremarkable. HEART: Unremarkable. BONES/ EXTRATHORACIC SOFT TISSUE: Unremarkable. ABDOMEN AND PELVIS: Unremarkable x-ray of the abdomen with nonobstructed bowel gas pattern. There is no evidence of abdominal free air. There are no focal calcifications overlying the expected regions/ pathways of both kidneys, ureters, and bladder regions. IMPRESSION: 1: Unremarkable chest x-ray exam with no radiographic evidence of acute cardiopulmonary process. 2: Unremarkable x-ray of the abdomen. Dictated by: Dictated on workstation # [id number]
[2016-06-22 21:46] LABS: ALANINE AMINOTRANSFERASE 13 U/L (0-55); ALBUMIN 3.9 G/DL (3.2-4.5); ANION GAP 7 MMOL/L (5-14); ASPARTATE AMINO TRANSFERASE 10 U/L (5-34); BILIRUBIN,TOTAL 0.9 MG/DL (0.1-1.0); BLOOD UREA NITROGEN 9 MG/DL (7-18); BUN/CREATININE RATIO 12; CALCIUM 9.1 MG/DL (8.5-10.1); CARBON DIOXIDE 23 MMOL/L (21-32); CHLORIDE 111 MMOL/L (98-107); CREATININE SERUM 0.78 MG/DL (0.60-1.30); GFR ESTIMATED > 60; GLUCOSE 88 MG/DL (70-105); LIPASE 42 U/L (8-78); POTASSIUM 3.6 MMOL/L (3.6-5.0); SODIUM 141 MMOL/L (135-145); TOTAL PROTEIN 6.3 G/DL (6.4-8.2)
[2016-06-22] MEDS ORDERED: AMOX500C2 PO (21:51)
[2016-06-22] MEDS ORDERED: L.AC1CAP6 PO (21:52)
[2016-06-22] MEDS ORDERED: OMEP40CA36 PO (21:56)
[2016-06-22 22:03] VITALS: BP 0/0
== END 2016-06-22 22:03 | disposition home or self-care (01) ==
LOC: EDUNIT# 19:31 → ER 19:33
DX: R19.7 Diarrhea, unspecified (principal); N39.0 Urinary tract infection, site not specified; K25.9 Gastric ulcer, unspecified as acute or chronic, without hemorrhage or perforation; Z79.899 Other long term (current) drug therapy
CPT/HCPCS: 36415; 74022; 80053; 81000; 83690; 85025; 87088; 96360

== ENCOUNTER 2017-04-29 08:04 | Outpatient (RCR) | payer MEDICAID ==
[~2017-04-29 08:04] MED LIST changes: +AMOX500C2 PO; +L.AC1CAP6 PO
== END 2017-05-15 | disposition home or self-care (01) ==
PROVIDERS: ATTEND Internal Medicine
DX: G44.209 Tension-type headache, unspecified, not intractable (principal)

== ENCOUNTER 2018-12-17 11:01 | Emergency (ER) | payer MEDICAID ==
[~2018-12-17] VITALS: Ht 175.2 cm; Wt 94.5 kg
--- NOTE | 2018-12-17 11:21 | ED General ---
General Chief Complaint: General Problems/Pain Stated Complaint: SYNCOPE Source of Information: Patient Exam Limitations: No Limitations History of Present Illness Date Seen by Provider: Dec 17, 2018 Time Seen by Provider: 11:16 Initial Comments Via to ER per EMS from [place] with reports of a near syncopal events. She is mostly constant employed at [employer] is a bit. She was noted by coworkers to suddenly stare and then sit down and report lightheadedness. Patient states that she developed some abdominal pain, intense nausea and then she sat down and almost blacked out. At this time she denies abdominal pain or nausea, she feels back to normal. EMS did note a blood sugar of 61, they gave oral glucose. Patient is not known to be diabetic that she is on metformin presumably for PCOS. PCP is [facility]. Timing/Duration: 1-3 Hours Severity: Moderate Associated Systoms: Nausea/Vomiting Allergies and Home Medications Allergies Coded Allergies: No Known Drug Allergies (Unverified , 04/30/12) Home Medications Amoxicillin 500 Mg Capsule, 500 MG PO TID Prescribed by: SOPHIA ALICEA on 06/22/162150 Fluoxetine Hcl 10 Mg Capsule, 10 MG PO DAILY, (Reported) Hyoscyamine Sulfate 0.125 Mg Tab.subl, 1-2 TAB SL Q4H Prescribed by: IBETH ZIMMERMAN on 12/06/152008 L.acidoph & ParacaseiB.lactis 1 Each Capsule, 1 EACH PO TID Prescribed by: SOPHIA ALICEA on 06/22/162151 Meloxicam 15 Mg Tablet, 15 MG PO DAILY, (Reported) Metformin Hcl 500 Mg Tab.sr.24h, 500 MG PO DAILY, (Reported) Nitrofurantoin Monohyd/M-Cryst 100 Mg Capsule, 100 MG PO BID Prescribed by: IBETH ZIMMERMAN on 12/06/152010 Omeprazole 40 Mg Capsule.dr, 40 MG PO DAILY PRN for lass he was30 Prescribed by: SOPHIA ALICEA on 06/22/162155 Pantoprazole Sodium 40 Mg Tablet.dr, 40 MG PO DAILY Prescribed by: IBETH ZIMMERMAN on 12/06/152008 Phentermine HCl 37.5 Mg Tablet, 37.5 MG PO DAILY, (Reported) Potassium Chloride 10 Meq Capsule.sa, 10 MEQ PO DAILY, (Reported) Promethazine HCl 25 Mg Tablet, 25 MG PO Q6H PRN for NAUSEA/VOMITING Prescribed by: SWATHI CORCORAN on 01/17/16 1614 Sumatriptan Succinate 25 Mg Tablet, 25 MG PO PRN PRN for MIGRAINE Take 2 tablets first sign of a migraine headache. If still having a headache and 2 hours you may take the third tablet Prescribed by: SWATHI CORCORAN on 01/17/16 1614 Tramadol Hcl 50 Mg Tablet, 50 MG PO Q4H Prescribed by: IBETH ZIMMERMAN on 07/28/14 5944 Patient Home Medication List Home Medication List Reviewed: Yes Review of Systems Review of Systems Constitutional: see HPI EENTM: see HPI Respiratory: no symptoms reported; No short of breath Cardiovascular: see HPI; No chest pain Gastrointestinal: abdominal pain, nausea; No vomiting Genitourinary: no symptoms reported Musculoskeletal: no symptoms reported Skin: no symptoms reported Psychiatric/Neurological: No Symptoms Reported Hematologic/Lymphatic: No Symptoms Reported Past Youiiis-Gbwcxa-Mrmuiq Hx Patient Social History Alcohol Use: Denies Use Recreational Drug Use: No Smoking Status: Never a Smoker Recent Foreign Travel: No Contact w/Someone Who Travel: No Recent Hopitalizations: No Physical Abuse: No Sexual Abuse: No Mistreated: No Fear: No Immunizations Up To Date Tetanus Booster (TDap): Unknown PED Vaccines UTD: Yes Seasonal Allergies Seasonal Allergies: No Past Medical History Surgeries: Yes (CYST REMOVED, DENTAL; FLEX SIGMOIDOSCOPY) Gallbladder, Tonsillectomy Respiratory: No Cardiac: No Neurological: No Reproductive Disorders: No Sexually Transmitted Disease: No Gastrointestinal: Yes (S/P HUMZA) Gall Bladder Disease Musculoskeletal: No Endocrine: Yes (INSULIN RESISTANT) Diabetes, Non-Insulin dep Cancer: No Psychosocial: Yes Depression Integumentary: No Blood Disorders: No Family Medical History No Pertinent Family Hx Physical Exam Vital Signs Vital Signs - First Documented 12/17/18 11:01 Temp 36.7 Pulse 68 Resp 20 B/P (MAP) 117/68 (84) Pulse Ox 98 O2 Delivery Room Air Capillary Refill : Height, Weight, BMI Height: 5'10.00" Weight: 245lbs. 0.0oz. 111.830095tl; 35.2 BMI Method:Stated General Appearance: No Apparent Distress, WD/WN, Other (alert, answers to que stions are delayed but appropriate. I do not know her baseline.) HEENT: PERRL/EOMI, TMs Normal Neck: Full Range of Motion, Normal Inspection Respiratory: No Accessory Muscle Use, No Respiratory Distress Cardiovascular: Regular Rate, Rhythm, Normal Peripheral Pulses Gastrointestinal: Normal Bowel Sounds, Non Tender, Soft Extremity: Normal Capillary Refill, Normal Inspection Neurologic/Psychiatric: Alert, Oriented x3 Progress/Results/Core Measures Suspected Sepsis SIRS Temperature: Pulse: Respiratory Rate: Laboratory Tests 12/17/18 11:31: White Blood Count 8.1 Blood Pressure / Mean: Laboratory Tests 12/17/18 11:31: Creatinine 0.85, Platelet Count 275, Total Bilirubin 2.1H Results/Orders Lab Results Laboratory Tests Test 12/17/18 11:25 12/17/18 11:31 12/17/18 12:44 Range/Units Glucometer 77 70-110 MG/DL White Blood Count 8.1 4.3-11.0 10^3/uL Red Blood Count 4.53 4.35-5.85 10^6/uL Hemoglobin 14.0 11.5-16.0 G/DL Hematocrit 41 35-52 % Mean Corpuscular Volume 90 80-99 FL Mean Corpuscular Hemoglobin 31 25-34 PG Mean Corpuscular Hemoglobin Concent 34 32-36 G/DL Red Cell Distribution Width 12.2 10.0-14.5 % Platelet Count 275 130-400 10^3/uL Mean Platelet Volume 10.1 7.4-10.4 FL Neutrophils (%) (Auto) 57 42-75 % Lymphocytes (%) (Auto) 33 12-44 % Monocytes (%) (Auto) 9 0-12 % Eosinophils (%) (Auto) 1 0-10 % Basophils (%) (Auto) 0 0-10 % Neutrophils # (Auto) 4.6 1.8-7.8 X 10^3 Lymphocytes # (Auto) 2.7 1.0-4.0 X 10^3 Monocytes # (Auto) 0.7 0.0-1.0 X 10^3 Eosinophils # (Auto) 0.1 0.0-0.3 10^3/uL Basophils # (Auto) 0.0 0.0-0.1 10^3/uL Sodium Level 143 135-145 MMOL/L Potassium Level 4.1 3.6-5.0 MMOL/L Chloride Level 112 H 98-107 MMOL/L Carbon Dioxide Level 18 L 21-32 MMOL/L Anion Gap 13 5-14 MMOL/L Blood Urea Nitrogen 21 H 7-18 MG/DL Creatinine 0.85 0.60-1.30 MG/DL Estimat Glomerular Filtration Rate > 60 BUN/Creatinine Ratio 25 Glucose Level 75 70-105 MG/DL Calcium Level 9.3 8.5-10.1 MG/DL Corrected Calcium 9.1 8.5-10.1 MG/DL Total Bilirubin 2.1 H 0.1-1.0 MG/DL Aspartate Amino Transf (AST/SGOT) 16 5-34 U/L Alanine Aminotransferase (ALT/SGPT) 13 0-55 U/L Alkaline Phosphatase 46 40-136 U/L Total Protein 7.1 6.4-8.2 GM/DL Albumin 4.2 3.2-4.5 GM/DL Lipase 35 8-78 U/L Serum Test, Qualitative NEGATIVE NEGATIVE Urine Color YELLOW Urine Clarity CLEAR Urine pH 5.0 5-9 Urine Specific [place] >=1.030 1.016-1.022 Urine Protein NEGATIVE NEGATIVE Urine Glucose (UA) NEGATIVE NEGATIVE Urine Ketones TRACE H NEGATIVE Urine Nitrite NEGATIVE NEGATIVE Urine Bilirubin NEGATIVE NEGATIVE Urine Urobilinogen 0.2 < = 1.0 MG/DL Urine Leukocyte Esterase NEGATIVE NEGATIVE Urine RBC (Auto) NEGATIVE NEGATIVE Urine RBC NONE /HPF Urine WBC NONE /HPF Urine Squamous Epithelial Cells 2-5 /HPF Urine Crystals NONE /LPF Urine Bacteria TRACE /HPF Urine Casts NONE /LPF Urine Mucus LARGE H /LPF Urine Culture Indicated NO My Orders Orders - SOPHIA ALICEA APRN Cbc With Automated Diff (12/17/18 11:15) Comprehensive Metabolic Panel (12/17/18 11:15) Ua Culture If Indicated (12/17/18 11:15) Hcg,Qualitative Serum (12/17/18 11:15) Ed Iv/Invasive Line Start (12/17/18 11:15) Lipase (12/17/18 11:15) Vital Signs/I&O 12/17/18 11:01 Temp 36.7 Pulse 68 Resp 20 B/P (MAP) 117/68 (84) Pulse Ox 98 O2 Delivery Room Air Capillary Refill : Departure Impression Primary Impression: Near syncope Additional Impression: transient abdominal pain Disposition: HOME, SELF-CARE Condition: Stable Departure-Patient Inst. Decision time for Depature: 13:14 Referrals: KAMRYN MORE DO (PCP/Family) Primary Care Physician Patient Instructions: Near Fainting Add. Discharge Instructions: 1. Return to ER for any concerns 2. Follow-up with your doctor next week 3. All discharge instructions reviewed with patient and/or family. Voiced understanding. SOPHIA ALICEA APRN Dec 17, 2018 11:21 POS
[2018-12-17 11:36] LABS: BASOPHILS % (AUTO) 0 % (0-10); EOSINOPHILS # (AUTO) 0.1 10^3/uL (0.0-0.3); EOSINOPHILS % (AUTO) 1 % (0-10); HEMATOCRIT 41 % (35-52); LYMPHOCYTES # (AUTO) 2.7 X 10^3 (1.0-4.0); LYMPHOCYTES % (AUTO) 33 % (12-44); MEAN CORPUSCULAR HEMOGLOBIN 31 PG (25-34); MEAN CORPUSCULAR HGB CONC 34 G/DL (32-36); MEAN CORPUSCULAR VOLUME 90 FL (80-99); MEAN PLATELET VOLUME 10.1 FL (7.4-10.4); MONOCYTES # (AUTO) 0.7 X 10^3 (0.0-1.0); MONOCYTES % (AUTO) 9 % (0-12); NEUTROPHILS # (AUTO) 4.6 X 10^3 (1.8-7.8); NEUTROPHILS % (AUTO) 57 % (42-75); PLATELET COUNT 275 10^3/uL (130-400); RED CELL DISTRIBUTION WIDTH 12.2 % (10.0-14.5); WHITE BLOOD COUNT 8.1 10^3/uL (4.3-11.0)
[2018-12-17 11:54] LABS: ALANINE AMINOTRANSFERASE 13 U/L (0-55); ALBUMIN 4.2 GM/DL (3.2-4.5); ALKALINE PHOSPHATASE 46 U/L (40-136); BILIRUBIN,TOTAL 2.1 MG/DL (0.1-1.0); BUN/CREATININE RATIO 25; CALCIUM 9.3 MG/DL (8.5-10.1); CARBON DIOXIDE 18 MMOL/L (21-32); CHLORIDE 112 MMOL/L (98-107); CREATININE SERUM 0.85 MG/DL (0.60-1.30); GFR ESTIMATED > 60; GLUCOSE 75 MG/DL (70-105); LIPASE 35 U/L (8-78); POTASSIUM 4.1 MMOL/L (3.6-5.0); SODIUM 143 MMOL/L (135-145); TOTAL PROTEIN 7.1 GM/DL (6.4-8.2)
[2018-12-17 12:55] LABS: BILIRUBIN,URINE NEGATIVE (NEGATIVE); CLARITY,URINE CLEAR; COLOR,URINE YELLOW; GLUCOSE, URINE (UA) NEGATIVE (NEGATIVE); KETONES,URINE TRACE (NEGATIVE); LEUKOCYTE ESTERASE ,URINE NEGATIVE (NEGATIVE); NITRITE,URINE NEGATIVE (NEGATIVE); PROTEIN,URINE NEGATIVE (NEGATIVE)
[2018-12-17 13:11] LABS: BACTERIA,URINE TRACE /HPF
[2018-12-17 13:35] VITALS: BP 117/68
== END 2018-12-17 13:35 | disposition home or self-care (01) ==
LOC: EDUNIT# 11:05 → ER 11:06
DX: R55 Syncope and collapse (principal); R10.9 Unspecified abdominal pain; E11.9 Type 2 diabetes mellitus without complications; F32.9 Major depressive disorder, single episode, unspecified; Z79.84 Long term (current) use of oral hypoglycemic drugs; Z90.89 Acquired absence of other organs
CPT/HCPCS: 36415; 80053; 81000; 82962; 83690; 84703; 85025

== ENCOUNTER 2020-10-14 08:15 | Outpatient (RCR) | payer MEDICAID ==
[~2020-10-14 08:15] MED LIST changes: -OMEP40CA36 PO; +OMEP40CA6 PO; -PHEN37.53 PO; +PHEN37.58 PO
== END 2020-10-14 13:35 | disposition home or self-care (01) ==
PROVIDERS: ATTEND Orthopaedic Surgery
DX: G56.21 Lesion of ulnar nerve, right upper limb (principal); Z98.890 Other specified postprocedural states